=== PATIENT | male | born 1935 | race Caucasian/White ===

== ENCOUNTER 2016-03-30 14:58 | Inpatient (IN) | payer MEDICARE ==
[~2016-03-30] VITALS: Ht 180.3 cm; Wt 86.6 kg
--- NOTE | ~2016-03-30 | HEMODYNAMI ---
PATIENT:TORO AUGUST MEDICAL RECORD: [id number] : 33 [id number] ADMISSION DATE: 03/30/16 Generatedon:04/05/20169:38 Patient name: TORO AUGUST Patient #: [id number] SSN: : 1935 Date of study: 04/05/2016 Page: Of Hemodynamic Procedure Report Patient Data Patient Demographics Procedure consent was obtained First Name: TORO Gender: Male Last Name: MARIANGEL : 1935 Middle Initial: J Age: 80 year(s) Patient #: [id number] Race: Additional ID: [id number] Contact details Address: [address] [place] [address] State: [place] City: [place] Zip code: [address] Past Medical History Allergies: No known allergies Admission Admission Data Admission Date: 03/30/2016 Admission Time: 16:49 Admit Source: Other Insurance Payor: Private Room #: [id number] health insurance Height (in.): 72 BSA: 2.06 (m2) Height (cm.): 182.88 BMI: 25.09 (kg/m2) Weight (lbs.): 185 Weight (kg.): 83.91 Procedure Procedure Types Cath Procedure Diagnostic Procedure LHC LHC w/Coronaries w/Grafts Procedure Description Procedure Date Procedure Date: 04/05/2016 Procedure Start Time: 9:14 Procedure End Time: 9:36 Procedure Staff Name Function Luis Brennan MD Performing Physician Tika Medrano RT Scrub Rekha Moise RN Nurse Hema Jean RN Slate Roofer Travon Magana RT Monitor Procedure Data Cath Procedure Fluoroscopy Diagnostic fluoroscopy Total fluoroscopy Time: 6.1 time: 6.1 min min Diagnostic fluoroscopy Total fluoroscopy dose: 428 dose: 428 mGy mGy Contrast Material Contrast Material Type Amount (ml) Isovue 300 90 Entry Location Entry Primary Successful Side Size Upsize Upsize Entry Closure Succes sful Closure Location (Fr) 1 (Fr) 2 (Fr) Remarks Device Remarks Femoral Right 5 Fr Exoseal artery Estimated blood loss: 5 ml Diagnostic catheters Device Type Used For End Catheter Placement Cordis 5Fr JL 4.0 Procedure Catheter (MP) Cordis Infinity 5Fr AR Procedure MOD Catheter Cordis Infinity 5Fr AR 2 Procedure MOD catheter Cordis Infinity 5Fr IM Procedure catheter Cordis Infinity 5Fr Aortic Root Pigtail catheter Angiography Procedure Complications No complications Procedure Medications Medication Administration Route Dosage Oxygen NC 2 l/min Lidocaine 2% added to field 20 Heparin Flush Bag added to field 2 bags (1000units/500ml NS) 0.9% NaCl I.V. 100 ml/hr Versed I.V. 1 mg Fentanyl I.V. 50 mcg Versed I.V. 0.5 mg Fentanyl I.V. 25 mcg Versed I.V. 0.5 mg Fentanyl I.V. 25 mcg Hemodynamics Rest BSA: 2.06 (m2) O2 Consumption: Estimated: 237.95 (ml/min) O2 Consumption indexed : Estimated:115.51 (ml/min/m) Heart Rate: 74 (bpm) Snapshots Pre Cath Intra NCS Post Cath Vital Signs Time Heart Resp SPO2 etCO2 [id number] NIBP (mmHg) Rhythm Pain Sedation Rate (ipm) (%) (mmHg) (mmHg) Status Level (bpm) 8:58:06 79 17 96 0 0 154/79(114) NSR 0 (11) 10(A) , No pain 9:02:22 76 16 100 0 0 147/86(124) NSR 0 (11) 10(A) , No pain 9:06:38 73 16 98 0 0 130/76(102) NSR 0 (11) 10(A) , No pain 9:10:50 72 23 96 0 0 137/69(123) NSR 0 (11) 10(A) , No pain 9:15:02 74 14 98 0 0 141/75(106) NSR 0 (11) 9(A) , No pain 9:19:14 76 16 98 0 0 134/79(112) NSR 0 (11) 9(A) , No pain 9:23:28 73 14 99 0 0 136/65(110) NSR 0 (11) 9(A) , No pain 9:27:40 79 14 96 0 0 123/75(97) NSR 0 (11) 9(A) , No pain 9:31:45 82 17 97 0 0 128/79(96) NSR 0 (11) 10(A) , No pain 9:35:57 73 13 98 0 0 137/69(103) NSR 0 (11) 10(A) , No pain Medications Time Medication Route Dose Verified Delivered Reason Notes Effec tiveness by by 9:00:36 Oxygen NC 2 Luis Buffie used for l/min Mika Moise RN procedure 9:03:02 Lidocaine 2% added 20ml Luis Luis for local to vial Mika Brennan MD anesthetic field 9:03:07 Heparin Flush added 2 Luis Luis used for Bag to bags Mika Brennan MD procedure (1000units/500ml field NS) 9:03:17 0.9% NaCl I.V. 100 Luis Buffie Per ml/hr Mika Moise RN physician 9:09:28 Versed I.V. 1 mg Luis Buffie for Mika Moise RN sedation 9:09:34 Fentanyl I.V. 50 Luis Buffie for mcg Mika Moise RN sedation 9:15:18 Versed I.V. 0.5 Luis Buffie for mg Mika Moise RN sedation 9:15:23 Fentanyl I.V. 25 Luis Buffie for mcg Mika Moise RN sedation 9:23:13 Versed I.V. 0.5 Luis Buffie for mg Mika Moise RN sedation 9:23:17 Fentanyl I.V. 25 Luis Buffie for mcg Mika Moise RN sedation Procedure Log Time Note 8:45:26 Diagnostic Cath Status : Elective 8:45:53 Hema Jean RN sent for patient. Start room use. 8:45:54 Time tracking: Regular hours 8:45:57 Plan of Care:Hemodynamics will remain stable., Cardiac rhythm will remain stable., Comfort level will be maintained., Respiratory function will remain adequate., Patient/ family verbilizes understanding of procedure., Procedure tolerated without complication., Recovers from procedure without complications.. 8:53:57 Patient received from PCU to CCL 2 Alert and oriented. Tansferred to table in Supine position. 8:53:58 Warm blankets applied, and patsy hugger turned on for patient comfort. 8:53:58 Correct patient and procedure confirmed by team. 8:53:59 Signed procedure consent form obtained from patient. 8:54:00 ECG and BP/O2 sat monitors applied to patient. 8:54:01 Full Disclosure recording started 8:56:56 Vital chart was started 9:00:36 Oxygen 2 l/min NC was given by Rekha Moise RN; used for procedure; 9:00:38 Baseline sample Acquired. 9:00:43 Rhythm: sinus rhythm 9:01:11 H&P Date Dictated: 03/30/2016 Within 30 days and on chart.. 9:01:12 Pre-procedure instructions explained to patient. 9:01:12 Pre-op teaching completed and patient verbalized understanding. 9:01:15 Family in patients room. 9:01:16 Patient NPO since Midnight. 9:01:24 Patient allergic to No known allergies 9:01:27 Is the patient allergic to Iodine/contrast media? No. 9:01:29 Is patient on blood thinner?No 9:01:30 Patient diabetic? No. 9:01:36 Previous problem with sedation/anesthesia? No ? 9:01:37 Snore? No 9:01:38 Sleep apnea? No 9:01:39 Deviated septum? No 9:01:40 Opens mouth fully? Yes 9:01:41 Sticks out tongue? Yes 9:01:44 Airway obstruction? Yes COPD 9:01:47 Dentures? No ? 9:01:52 Pre procedure: right dorsailis pedis pulse 1+ Palpable, but thready & weak; easily obliterated 9:02:02 Patient pain scale 0/10 ?. 9:02:05 IV patent on arrival in left hand with 0.9% NaCl at O. 9:02:55 Lab Result : Hemoglobin 11.4 g/dl 9:02:55 Lab Result : Creatinine 2.6 mg/dl 9:02:58 Lab results completed and on chart. 9:03:01 Right groin area was prepped with chlora-prep and draped in sterile fashion 9:03:02 Lidocaine 2% 20ml vial added to field was given by Luis Brennan MD; for local anesthetic; 9:03:03 Alarms reviewed by R. N. 9:03:03 Sharps counted by scrub and verified by R.N. 9:03:05 Use device set Femoral Dx 9:03:07 Heparin Flush Bag (1000units/500ml NS) 2 bags added to field was given by Luis Brennan MD; used for procedure; 9:03:07 Tegaderm 4 x 4 opened to sterile field. 9:03:08 Acist Manifold opened to sterile field. 9:03:09 Acist Hand Control opened to sterile field. 9:03:10 Acist Syringe opened to sterile field. 9:03:10 Bag Decanter opened to sterile field. 9:03:10 Cardinal Cath Pack opened to sterile field. 9:03:11 Terumo 5Fr Lothian Sheath opened to sterile field. 9:03:11 St Gregg 260cm J .035 wire opened to sterile field. 9:03:17 0.9% NaCl 100 ml/hr I.V. was given by Rekha Moise RN; Per physician; ::18 --------ALL STOP TIME OUT------ 9::18 Final Timeout: patient, procedure, and site verified with staff and physician. All members of the team are in agreement. 9:03:20 Right groin site verified by team. 9:03:22 Physical assessment completed. ASA score P 3 - A patient with severe systemic disease as per Luis Brennan MD. 9:03:25 Sedation plan: IV Moderate Sedation Versed, Fentanyl 9:05:04 Admit Source: Other 9:05:12 Patient Height : 72 cm 9:05:21 Patient Weight : 185 kg 9:05:22 Insurance Payor : Private health insurance 9:05:44 ACC Patient presents with Unstable Angina CCS Anginal Class 3--Marked limitation of physical activity, angina occurs with ordinary activity.. 9:05:47 ACCPatient has been prescribed/administered the following anti-anginal medication within the last 2 weeks: None 9:08:37 Zero performed for pressure channel P1 9:08:40 Zero performed for pressure channel P1 9:08:53 Zero performed for pressure channel P1 9::28 Versed 1 mg I.V. was given by Rekha Moise RN; for sedation; 9:09:34 Fentanyl 50 mcg I.V. was given by Rekha Moise RN; for sedation; 9:09:39 Procedure type changed to Cath procedure, Diagnostic procedure, LHC, LHC w/Coronaries w/Grafts 9:13:53 Procedure started. 9:14:07 Local anesthetic to right femoral artery with Lidocaine 2% by Luis Brennan MD.INITIAL ACCESS ONLY 9:15:05 A 5 Fr sheath was inserted into the Right Femoral artery 9:15:18 Versed 0.5 mg I.V. was given by Rekha Moise RN; for sedation; 9:15:23 Fentanyl 25 mcg I.V. was given by Rekha Moise RN; for sedation; 9:16:52 A Cordis 5Fr JL 4.0 Catheter () was advanced over the wire and used for Procedure. 9:17:00 LCA angiography performed. 9:17:09 Catheter removed. 9:18:22 A Cordis Infinity 5Fr AR MOD Catheter was advanced over the wire and used for Procedure. 9:19:04 Catheter removed. 9:19:17 A Cordis Infinity 5Fr AR 2 MOD catheter was advanced over the wire and used for Procedure. 9:21:16 SVG TO DIAG AND OM 9:22:14 SVG to RCA angiography performed. 9:23:08 Catheter removed. 9:23:13 Versed 0.5 mg I.V. was given by Rekha Moise RN; for sedation; 9:23:17 Fentanyl 25 mcg I.V. was given by Rekha Moise RN; for sedation; 9:23:40 A Cordis Infinity 5Fr IM catheter was advanced over the wire and used for Procedure. 9:27:05 SOLIS to LAD angiography performed. 9:28:21 Catheter removed. 9:29:20 A Cordis Infinity 5Fr Pigtail catheter was advanced over the wire and used for Aortic Root Angiography. 9:29:51 Aortic Root visualized 9:30:15 Catheter removed. 9:31:16 Cordis 5Fr Exoseal opened to sterile field. 9:31:33 Sheath removed intact; hemostasis achieved with Exoseal to the Right Femoral artery. 9:31:39 Procedure ended.(Physican Out) 9:33:58 Fluoroscopy time 06.10 minutes. 9:34:01 Fluoroscopy dose: 428 mGy 9:34:01 Flurop Dose total: 428 9:34:16 Contrast amount:Isovue 300 90ml. 9:34:17 Sharps counted by scrub and verified by R.N. 9:34:22 Insertion/operative site no bleeding no hematoma. 9:34:24 Post-op/insertion site Right Femoral artery dressed using a 4 x 4 and Tegaderm. 9:34:28 Post right femoral artery:stable, soft, clean and dry 9:34:30 Post Procedure Pulses reassessed and unchanged 9:34:34 Post-procedure physical assessment completed. ASA score P 3 - A patient with severe systemic disease as per Luis Brennan MD. 9:34:37 Post procedure rhythm: unchanged. 9:34:45 Estimated blood loss: 5 ml 9:34:46 Post procedure instruction explained to patient.Patient verbalizes understanding. 9:34:47 Patient needs reinforcement of post procedure teaching. 9:36:26 Procedure and supply charges have been captured, reviewed, submitted and are correct. 9:36:30 Procedure Complication : No complications 9:36:33 Vital chart was stopped 9:36:46 See physician's report for complete and final results. 9:36:49 Report given to PCU. 9:36:52 Patient transfered to PCU with Stretcher. 9:36:54 Procedure ended. 9:36:54 Full Disclosure recording stopped 9:37:09 End room use (Document Last) Device Usage Item Manufacture Quantity Catalog Hospital Part Current Minimal Lot # / Name Number Charge Number Stock Stock Ser ial# Code Tegaderm 1 [id number] 997972 [id number] 5 4 x 4 Acist Acist 1 37918 329706 625993 303275 5 Manifold Medical Systems Inc Acist Acist 1 28551 475284 521716 978481 5 Hand Medical Control Systems Inc Acist Acist 1 07538 567771 931044 454524 20 Syringe Medical Systems Inc Bag Microtek 1 2001S 878144 37939 820572 5 Decanter Medical Inc. Cardinal Cardinal 1 [id number] 961938 56634 151127 5 Cath Health Pack Terumo Terumo 1 [id number] 061268 569991 114353 [address] Gregg 1 008366 517198 205483 787333 30 260cm J .035 wire Cordis Cardinal 1 [id number] 5 5Fr Mobile Ads Health 4.0 Catheter (MP) Cordis Cardinal 1 [id number] 636890 341948 940883 15 [employer] 5Fr AR MOD Catheter Cordis Cardinal 1 [id number] 649358 680812 422311 20 Infinity Health 5Fr AR 2 MOD catheter Cordis Cardinal 1 [id number] 848717 695318 513524 5 Infinity Health 5Fr IM catheter Cordis Cardinal 1 [id number] 376138 038040 271645 5 Infinity Health 5Fr Pigtail catheter Cordis Cardinal 1 EX500 192692 898608 097437 10 5Fr Health Exoseal Signature Audit [place] Stage Time Signature Unsigned Intra-Procedure 04/05/2016 Travon Magana 9:38:05 AM RT(R) Signatures Monitor : Travon Magana RT Signature : Date : Time : [place] [address] [place] [address]
[~2016-03-30 14:58] MED LIST: COMBIVENT RESPIM4 GM; COMBIVENT RESPIM4 GM INH; DOXYCYCLINE HY100 M2 PO; ECOTRIN325 MG PO; HYDROCODON-ACE1 EAC7 PO; IPRAT-ALBUT 0.5-3 ML UPD; OMNICEF300 MG PO; ORAPRED ODT10 MG/TAB PO; PLAVIX75 MG PO; SYMBICORT 16010.2 GM INH; VITAMIN B-121000 MC3 PO
[2016-03-30 15:45] LABS: BASOPHILS 1.1 % (0.0-2.0); EOSINOPHILS 8.2 % (0-7); HEMOGLOBIN 11.9 g/dL (13.5-17.5); IMMATURE GRANULOCYTES 0.4 % (0-5); LYMPHOCYTES 21.3 % (15-50); MCH 32.2 pg (26.0-34.0); MCHC 33.1 g/dL (31.0-37.0); MCV 97.6 fL (80.0-100.0); MONOCYTES 11.6 % (2-11); NEUTROPHILS 57.4 % (40-80); RBC 3.69 10x6/uL (4.20-6.10); RDW 14.7 % (11.5-14.5); WBC 7.5 10x3/uL (4.8-10.8)
[2016-03-30 15:53] LABS: PLATELET COUNT 74 10x3/uL (130-400)
[2016-03-30 16:02] LABS: ALBUMIN 3.6 g/dL (3.4-5.0); ALKALINE PHOSPHATASE 83 U/L (46-116); ALT (SGPT) 20 U/L (10-68); BILIRUBIN - TOTAL 0.46 mg/dL (0.2-1.3); CALC OSMOLALITY 295 mosm/kg (275-300); CALCIUM 8.5 mg/dL (8.5-10.1); CARBON DIOXIDE 23.3 mmol/L (21.0-32.0); CHLORIDE - SERUM 108 mmol/L (98-107); CREATININE - SERUM 2.9 mg/dL (0.6-1.3); GLUCOSE 92 mg/dL (74-106); POTASSIUM - SERUM 5.1 mmol/L (3.5-5.1); PROTEIN - SERUM 6.9 g/dL (6.4-8.2); SODIUM 143 mmol/L (136-145); UREA NITROGEN 44 mg/dL (7-18); eGFR NON AFRICAN AMERICAN 22 mL/min (90-120)
[2016-03-30 16:16] LABS: PLATELET ESTIMATE DECREASED
[2016-03-30 16:18] LABS: CKMB 1.9 U/L (0.0-3.6); CREATINE KINASE 75 UL (21-232); PRO BNP 1236 pg/mL (0-450)
[2016-03-30 16:21] LABS: TROPONIN-I 0.096 ng/mL (0.000-0.060)
[2016-03-30 17:28] LABS: APPEARANCE CLEAR (CLEAR); BILIRUBIN NEGATIVE (NEGATIVE); COLOR YELLOW (YELLOW); GLUCOSE NEGATIVE (NEGATIVE); KETONE NEGATIVE (NEGATIVE); LEUKOCYTE ESTERASE NEGATIVE (NEGATIVE); NITRITE NEGATIVE (NEGATIVE); PROTEIN 2+ mg/dL (NEGATIVE); UROBILINOGEN NORMAL (NORMAL)
[2016-03-30 17:29] LABS: BACTERIA FEW /hpf (NONE SEEN); WHITE CELLS - URINE OCC /hpf (0-5)
[2016-03-30] MEDS ORDERED: OFEV PO (21:22)
[2016-03-30 22:56] VITALS: BP 154/94; BMI 25.8
[2016-03-31 00:45] VITALS: BP 141/75
--- NOTE | 2016-03-31 02:05 | NUR ---
PT RESTING WELL WITHOUT C/O OR DISTRESS NOTED. NO NEEDS VOICED. CALL LIGHT WITHIN REACH. WILL CONT TO MONITOR.
[2016-03-31 04:20] VITALS: BP 157/58
[2016-03-31 08:40] VITALS: BP 179/80
--- NOTE | 2016-03-31 09:59 | NUR ---
ASSESSMENT COMPLETED. TELEMERTY SHOWS SR. IV TO LEFT FOREARM AT 75 CC/HR. UP AB KYRA. DENIES ANY NEEDS. CALL LIGHT IN REACH WITH SR UP
[2016-03-31 12:03] VITALS: BP 131/60
--- NOTE | 2016-03-31 13:21 | HP ---
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 He had been going up and down the stairs and felt very short of breath, felt like his heart was racing, sat down and felt like he is going to pass out. He was evaluated there and shipped to the urgent care clinic for further evaluation and transferred to the Emergency Room via ambulance. PAST MEDICAL HISTORY: Significant for significant cardiovascular disease, has had quadruple bypass, valve replacement and abdominal aortic aneurysm repair. His retail and promotions coordinator is Dr. Woodward and he also has a history of COPD and sees Dr. Cabezas. Also, has had recent hernia repair and prior remote hernia repair. Former smoker. CURRENT MEDICATIONS: Inhalers from Dr. Cabezas. Recent medication: Not clear on the name, he does not have with him, but for pulmonary hypertension. Plavix and B12. ALLERGIES: No known drug allergies. REVIEW OF SYSTEMS: GENERAL: No acute change in weight or appetite. HEENT: No cephalgia, visual changes, tinnitus, epistaxis or dysphagia. CARDIOVASCULAR: Significant for the above. PULMONARY: Denies hemoptysis, denies night sweats. Does admit to shortness of breath. GASTROINTESTINAL: Denies hematemesis, hematochezia or melena. GENITOURINARY: Denies dysuria. Denies any change in frequency. MUSCULOSKELETAL: No acute changes. ENDOCRINE: Denies polyuria, polydipsia, or polyphagia. PHYSICAL EXAMINATION: VITAL SIGNS: Temperature 98.2, blood pressure is 156/89, heart rate 84, respirations 24, and O2 sats 84% room air. GENERAL: Alert, oriented, mild distress secondary to above symptoms somewhat improved with supplemental O2. HEENT: Head is normocephalic and atraumatic. Eyes: Pupils equally round and reactive to light and accommodation. Extraocular muscles intact. Conjunctiva are not injected. Ears: Canals patent, TMs are intact. Nose: Nares patent without drainage. Throat: No erythema, no exudates. NECK: Supple. No lymphadenopathy. HEART: Regular rate and rhythm. No S3 or S4. No rub. LUNGS: Clear to auscultation bilaterally. Breathing is nonlabored. ABDOMEN: Soft and nontender. Bowel sounds all 4 quadrants. EXTREMITIES: Present times 4, no edema. NEUROLOGIC: No focal deficits. DIAGNOSTIC DATA: EKG shows normal sinus rhythm, left axis deviation, LVH, QRS widening, ventricular rate 69. LABORATORY DATA: INR is 1.14, CK-MB 1.9, troponin 0.096. BNP 1236, creatinine HISTORY AND PHYSICAL [id number] TORO AUGUST elevated. ASSESSMENT AND PLAN: Acute congestive heart failure, likely non-ST elevation myocardial infarction, chronic kidney disease. The patient is admitted, cycle enzymes. Cardiology consulted, nephrology consulted. Resume home medications. Supportive care with supplemental O2, DuoNebs. TRANSINT:[id number] Voice Confirmation ID: [id number] DOCUMENT ID: [id number] FLORECITA CROWELL DO at 1321 CC: [id number] DICTATION DATE: 03/30/161920 SENIOR VISUAL DESIGNER: 03/30/162044 ADM IN [place] [id number] [place] [address]
--- NOTE | 2016-03-31 14:25 | NUR ---
LYING QUIETLY WITH EYES CLOSED. NO DISTRESS NOTED. WILL MONITOR
--- NOTE | 2016-03-31 14:41 | NUR ---
WALKING IN HALLWAY WITH . DENIES ANY NEEDS. TELEMERTY SHOWS SR
[2016-03-31 14:47] VITALS: BP 131/65
--- NOTE | 2016-03-31 15:01 | NUR ---
PT SITTING UP IN BED DENIES NEEDS
--- NOTE | 2016-03-31 18:13 | NUR ---
UP IN BEDSIDE CHAIR.DENIES ANY NEEDS. TELEMERTY SHOWS SR. WILL MONITOR
[2016-03-31 19:32] LABS: CREATININE - URINE 55.5 mg/dL (30-125); PROTEIN - URINE 132.6 mg/dL (0.0-11.9)
[2016-03-31 20:10] VITALS: BP 165/84
[2016-04-01 00:35] VITALS: BP 117/66
--- NOTE | 2016-04-01 02:00 | NUR ---
PT RESTING WELL WITHOUT C/O OR DISTRESS NOTED. NO NEEDS VOICED. CALL LIGHT WITHIN REACH. WILL CONT TO MONITOR.
[2016-04-01 04:28] VITALS: BP 105/60
[2016-04-01 06:14] LABS: BASOPHILS 0.5 % (0.0-2.0); EOSINOPHILS 5.6 % (0-7); HEMOGLOBIN 10.9 g/dL (13.5-17.5); IMMATURE GRANULOCYTES 0.2 % (0-5); LYMPHOCYTES 27.6 % (15-50); MCH 31.9 pg (26.0-34.0); MCV 96.5 fL (80.0-100.0); MONOCYTES 9.3 % (2-11); NEUTROPHILS 56.8 % (40-80); PLATELET COUNT 79 10x3/uL (130-400); RBC 3.42 10x6/uL (4.20-6.10); RDW 14.9 % (11.5-14.5); WBC 6.6 10x3/uL (4.8-10.8)
[2016-04-01 06:18] LABS: ANION GAP 14.2 mmol/L (8-16); CARBON DIOXIDE 23.6 mmol/L (21.0-32.0); CREATININE - SERUM 2.8 mg/dL (0.6-1.3); POTASSIUM - SERUM 4.8 mmol/L (3.5-5.1)
[2016-04-01 06:24] LABS: COMPLEMENT C4 17.7 mg/dL (17.4-52.2)
--- NOTE | 2016-04-01 07:25 | NUR ---
ASSESSMENT COMPLETED. DENIES ANY NEEDS. TELEMERTY SHOWS SR 68. IV TO LEFT AC WITH D5NS AT 75. CALL LIGHT IN REACH WITH SR UP. WILL MONITOR
[2016-04-01 08:07] VITALS: BP 130/43
--- NOTE | 2016-04-01 09:20 | NUR ---
IV PATENT. CALL LIGHT IN REACH. WILL CONT. PLAN OF CARE.
--- NOTE | 2016-04-01 10:27 | NUR ---
AMBULATING IN HALLWAY. GAIT SLOW AND STEADY. DENIES ANY NEEDS. MONITOR SHOWS SR.
[2016-04-01 12:19] VITALS: BP 148/80
--- NOTE | 2016-04-01 12:20 | NUR ---
UP IN BEDSIDE CHAIR FOR DIET. DENIES ANY NEEDS. FAMILY AT BEDSIDE. TELEMETRY SHOWS SR. WILL MONITOR
[2016-04-01 16:33] VITALS: BP 121/43
[2016-04-01 20:00] VITALS: BP 153/85
--- NOTE | 2016-04-01 21:54 | NUR ---
INITIAL ROUNDS COMPLETED AT 1915 HRS. PT DENIED ANUY DISCOMFORT. ASSESSMENT COMPLETED AT 1999 HRS. VSS. SR WITH BBB PER CM HR 86. IV TO LFA WITH D5NS AT 100CC/HR. IV PATENT. LUNGS DIMINISHED IN BASES BILAT. SYSTOLIC MURMUR NOTED. PT UP AD KYRA. PT CURRENTLY WATCHING TV; DENIES ANY DISCOMFORT. SR UP X2, CALL LIGHT WITHIN REACH.
--- NOTE | 2016-04-02 00:16 | NUR ---
PT RESTING WITH EYES CLOSED. RESP EVEN AND REGULAR SR UP X2, CALL LIGHT WITHIN REACH.
[2016-04-02 00:33] VITALS: BP 148/77
--- NOTE | 2016-04-02 03:05 | NUR ---
PT RESTING WITH EYES CLOSED. RESP EVEN AND REGULAR. SR UP X2, CALL LIGHT WITHIN REACH.
--- NOTE | 2016-04-02 04:49 | NUR ---
PT RESTING WITH EYES CLOSED. RESP EVEN AND REGULAR. SR UP X2, CALL LIGHT WITHIN REACH.
[2016-04-02 05:19] VITALS: BP 153/83
[2016-04-02 06:04] LABS: BASOPHILS 0.8 % (0.0-2.0); HEMATOCRIT 30.8 % (42.0-54.0); HEMOGLOBIN 10.5 g/dL (13.5-17.5); IMMATURE GRANULOCYTES 0.3 % (0-5); LYMPHOCYTES 27.4 % (15-50); MCH 32.7 pg (26.0-34.0); MCHC 34.1 g/dL (31.0-37.0); MONOCYTES 8.5 % (2-11); PLATELET COUNT 70 10x3/uL (130-400); RBC 3.21 10x6/uL (4.20-6.10); RDW 14.9 % (11.5-14.5)
[2016-04-02 06:39] LABS: CALC OSMOLALITY 302 mosm/kg (275-300); CALCIUM 8.1 mg/dL (8.5-10.1); CARBON DIOXIDE 21.5 mmol/L (21.0-32.0); CHLORIDE - SERUM 112 mmol/L (98-107); CKMB 1.4 U/L (0.0-3.6); CREATININE - SERUM 2.6 mg/dL (0.6-1.3); GLUCOSE 99 mg/dL (74-106); POTASSIUM - SERUM 4.5 mmol/L (3.5-5.1); SODIUM 145 mmol/L (136-145); UREA NITROGEN 51 mg/dL (7-18); eGFR NON AFRICAN AMERICAN 25 mL/min (90-120)
--- NOTE | 2016-04-02 06:54 | NUR ---
VSS THROUGHOUT NIGHT. SR PER CM. PT DENIED ANY DISCOMFORT. NEEDS MET; WILL CONTINUE TO MONITOR.
--- NOTE | 2016-04-02 07:25 | NUR ---
ASSESSMENT DONE. DENIES NEEDS.
--- NOTE | 2016-04-02 09:54 | NUR ---
Rests in bed with eyes closed. IV patent. Call light in reach. Will monitor needs.
--- NOTE | 2016-04-02 17:02 | NUR ---
WITHOUT CHANGES OR DISTRESS NOTED AT THIS TIME. ESTEFANY NEEDS.
[2016-04-02 21:43] VITALS: BP 145/58
[2016-04-03 01:28] VITALS: BP 175/73
[2016-04-03 05:20] LABS: EOSINOPHILS 12.2 % (0-7); HEMATOCRIT 31.8 % (42.0-54.0); HEMOGLOBIN 10.8 g/dL (13.5-17.5); IMMATURE GRANULOCYTES 0.3 % (0-5); LYMPHOCYTES 24.9 % (15-50); MCH 32.2 pg (26.0-34.0); MCV 94.9 fL (80.0-100.0); MEAN PLATELET VOLUME 9.9 fL (7.4-10.4); MONOCYTES 10.3 % (2-11); NEUTROPHILS 51.3 % (40-80); PLATELET COUNT 65 10x3/uL (130-400); RBC 3.35 10x6/uL (4.20-6.10); WBC 6.3 10x3/uL (4.8-10.8)
[2016-04-03 05:37] LABS: APTT 32.1 SECONDS (22.8-39.4); INR 1.21 (0.85-1.17); PROTIME 15.2 SECONDS (11.6-15.0)
[2016-04-03 05:45] VITALS: BP 155/89
[2016-04-03 05:50] LABS: CALCIUM 8.2 mg/dL (8.5-10.1); CARBON DIOXIDE 20.5 mmol/L (21.0-32.0); CREATININE - SERUM 2.5 mg/dL (0.6-1.3); POTASSIUM - SERUM 4.5 mmol/L (3.5-5.1)
[2016-04-03 08:00] VITALS: BP 141/82
--- NOTE | 2016-04-03 08:05 | NUR ---
ASSESSMENT DONE. DENIES NEEDS.
--- NOTE | 2016-04-03 09:41 | NUR ---
UP IN CHAIR WITH CALL LIGHT IN REACH. WILL CONT. PLAN OF CARE.
[2016-04-03 10:16] LABS: ANA REFLEX - DIRECT Negative (Negative)
[2016-04-03 11:16] LABS: HEPATITIS C ANTIBODY <0.1 (0.0-0.9)
[2016-04-03 12:00] VITALS: BP 137/67
[2016-04-03 12:59] VITALS: Ht 180.3 cm; Wt 86.6 kg
[2016-04-03 15:18] LABS: SPE - A/G RATIO 1.1 (0.7-1.7); SPE - ALBUMIN 3.1 g/dL (2.9-4.4); SPE - ALPHA-1 GLOBULIN 0.2 g/dL (0.0-0.4); SPE - ALPHA-2 GLOBULIN 0.7 g/dL (0.4-1.0); SPE - BETA GLOBULIN 0.9 g/dL (0.7-1.3); SPE - GAMMA GLOBULIN 0.9 g/dL (0.4-1.8); SPE - M-SPIKE Not Observed g/dL (Not Observed); SPE - TOTAL PROTEIN 5.8 g/dL (6.0-8.5)
[2016-04-03 16:00] VITALS: BP 125/73
--- NOTE | 2016-04-03 17:10 | NUR ---
WITHOUT CHANGES OR DISTRESS NOTED AT THIS TIME. DENIES NEEDS.
[2016-04-03 21:06] VITALS: BP 139/86
--- NOTE | 2016-04-03 21:23 | NUR ---
PT ASSESSMENT COMPLETED NO DISTRESS OBSERVED PT LAYING IN BED ON ROOM AIR RESPERATIONS EVEN AND UNLABORED, PT STATED " I BREATH OKAY UNLESS I WALK A CERTIAN DISTANCE THEN I GET SHORT OF BREATH" ADVISED PT ABOUT WEARING O2 WHEN WALKING AND PT STATED " I DONT WANT TO DO THAT BECAUSE THEN I WILL NEVER GET OFF OF IT" TEACHING FOR COPD AND CHF DONE AND PT VERBALIZED UNDERSTANDING. SRX2 BED LOW AND LOCKED CALL LIGHT IN REACH WILL MONITOR
[2016-04-04 00:43] VITALS: BP 144/81
[2016-04-04 05:26] VITALS: BP 156/51
--- NOTE | 2016-04-04 07:11 | NUR ---
ASSESSMENT DONE. DENIES NEEDS.
[2016-04-04 08:24] VITALS: BP 149/76
--- NOTE | 2016-04-04 09:55 | NUR ---
RESTS WITH EYES CLOSED. CALL LIGHT IN REACH. WILL MONITOR NEEDS.
[2016-04-04 10:17] LABS: ANTI-GLOMERULAR BASMENT MEMBRN 5 units (0-20)
[2016-04-04 13:17] VITALS: BP 149/80
[2016-04-04 16:27] VITALS: BP 156/87
[2016-04-04 18:54] LABS: BASOPHILS 0.8 % (0.0-2.0); EOSINOPHILS 10.5 % (0-7); HEMATOCRIT 34.1 % (42.0-54.0); HEMOGLOBIN 11.4 g/dL (13.5-17.5); IMMATURE GRANULOCYTES 0.3 % (0-5); LYMPHOCYTES 22.1 % (15-50); MCH 32.5 pg (26.0-34.0); MCHC 33.4 g/dL (31.0-37.0); MEAN PLATELET VOLUME 10.1 fL (7.4-10.4); MONOCYTES 7.6 % (2-11); NEUTROPHILS 58.7 % (40-80); PLATELET COUNT 67 10x3/uL (130-400); RBC 3.51 10x6/uL (4.20-6.10); RDW 15.1 % (11.5-14.5); WBC 7.3 10x3/uL (4.8-10.8)
[2016-04-04 18:55] LABS: MCV 97.2 fL (80.0-100.0)
[2016-04-04 19:09] LABS: ANION GAP 15.8 mmol/L (8-16); CALCIUM 8.5 mg/dL (8.5-10.1); CARBON DIOXIDE 24.5 mmol/L (21.0-32.0); CREATININE - SERUM 2.6 mg/dL (0.6-1.3)
[2016-04-04 19:20] LABS: POTASSIUM - SERUM 5.3 mmol/L (3.5-5.1)
[2016-04-04 20:02] VITALS: BP 140/70
[2016-04-05] VITALS (10 sets, daily range): BP systolic 116–146; BP diastolic 65–84
--- NOTE | 2016-04-05 04:36 | NUR ---
PT LAYING IN BED NO DISTRESS OBSERVED PT NOTIFIED OF NPO STATUS AFTER MIDNIGHT FOR CATH IN AM AND PT VERBALIZED UNDERSTANDING CALL LIGHT IN REACH SRX2 BED LOW AND LOCKED WILL MONITOR
[2016-04-05 06:06] LABS: BASOPHILS 0.9 % (0.0-2.0); EOSINOPHILS 9.6 % (0-7); HEMATOCRIT 32.2 % (42.0-54.0); HEMOGLOBIN 10.8 g/dL (13.5-17.5); IMMATURE GRANULOCYTES 0.4 % (0-5); LYMPHOCYTES 23.6 % (15-50); MCHC 33.5 g/dL (31.0-37.0); MCV 95.5 fL (80.0-100.0); MEAN PLATELET VOLUME 11.2 fL (7.4-10.4); NEUTROPHILS 55.5 % (40-80); PLATELET COUNT 78 10x3/uL (130-400); RBC 3.37 10x6/uL (4.20-6.10); RDW 14.9 % (11.5-14.5)
[2016-04-05 06:29] LABS: ANION GAP 15.4 mmol/L (8-16); CALCIUM 8.1 mg/dL (8.5-10.1); CARBON DIOXIDE 24.7 mmol/L (21.0-32.0); CREATININE - SERUM 2.4 mg/dL (0.6-1.3); POTASSIUM - SERUM 5.1 mmol/L (3.5-5.1)
--- NOTE | 2016-04-05 07:30 | NUR ---
RECEIVED PT IN BED WITH EYES CLOSED RESP UNLABORED NAD NOTED
--- NOTE | 2016-04-05 09:42 | NUR ---
Patient Name: TORO AUGUST Admission Status: ER Accout number: [id number] Admission Date: 03-30-2016 : 1935 Admission Diagnosis:DYSPNEA, UNSPECIFIED Attending: HUMBLE Current LOS: 6 Anticipated DC Date: Planned Disposition: Home Primary Insurance: [employer] [facility] Discharge Planning Comments: CM met with patient's spouse "Columba August" at bedside. The patient has currently gone for procedure. At this time, the patient's spouse answered all questions. Spouse states the patient resides at home with her and is independent of all ADL's. They reside in a single story home with 3 steps leading into the front door. She states the last hospitalization was a hernia repair 5-6 month's ago here at [facility]. She states the home environment is safe to return to and will notify CM should the patient need DME/HH. CM will follow up and revisit when patient returns to room. CM will also follow and assist as needed with discharge planning/needs. Call Center Team Leader: Ania Roberts RN/CM No. Question Answer Score * How many steps to enter\\exit or inside your home? 3 0 * PCP Dr. Gastelum 0 * Pharmacy [facility] ([facility]) [phone] 0 * Preadmission Environment Home with Family 0 * ADLs Independent 0 * Equipment None 0 * List name and contact numbers for known caregivers / representatives who currently or will assist patient after discharge: Columba August (spouse) [phone] 0 * Community resources currently utilized None 0 * Additional services required to return to the preadmission environment? No 0 * Can the patient safely return to the preadmission environment? Yes 0 * Has this patient been hospitalized within the prior 30 days at any hospital? No 0 Grand Total: 0
--- NOTE | 2016-04-05 09:53 | NUR ---
RECEIVED PT BACK TO ROOM VIA BED IN STABLE CONDITION VSS
[2016-04-05 15:25] LABS: ANCA - ANTIMYELOPEROXIDASE <9.0 U/mL (0.0-9.0); ANCA - ANTIPROTEINASE 3 <3.5 U/mL (0.0-3.5); ANCA - ATYPICAL 1:20 titer (Neg:<1:20); ANCA - CYTOPLASMIC <1:20 titer (Neg:<1:20); ANCA - PERINUCLEAR <1:20 titer (Neg:<1:20)
--- NOTE | 2016-04-05 20:10 | NUR ---
RESUMED CARE OF PT, LYING IN BED RESPIRATIONS EVEN AND UNLABORED ON 2LPM VIA NC. 78 SR ON TELEMETRY. LEFT FOREARM INFUSING NA BICARB @ 75. RIGHT GROIN C/D/I WITH PEDAL PULSE PALPABLE. NO NEEDS VOICED AT THIS TIME. WILL CONTINUE TO MONITOR. SEE NURSE ASSESSMENT. CALL LIGHT IN REACH.
--- NOTE | 2016-04-05 21:15 | NUR ---
UP AMBULATING HALLWAYS, EXPERIENCED SHORTNESS OF BREATH. STATES THIS HAPPENS AT HOME WELL. RECOVERED AFTER APPROX 3MIN. BACK TO ROOM.
[2016-04-06 00:36] VITALS: BP 129/65
--- NOTE | 2016-04-06 04:02 | NUR ---
CERTIFIED NURSE MIDWIFE AT BEDSIDE TO OBTAIN VITALS, CALL LIGHT IN REACH. WILL CONTINUE TO MONITOR.
[2016-04-06 04:57] VITALS: BP 129/69
[2016-04-06 05:01] LABS: BASOPHILS 1.2 % (0.0-2.0); EOSINOPHILS 12.5 % (0-7); HEMATOCRIT 32.3 % (42.0-54.0); HEMOGLOBIN 10.7 g/dL (13.5-17.5); IMMATURE GRANULOCYTES 0.3 % (0-5); LYMPHOCYTES 27.5 % (15-50); MCH 31.9 pg (26.0-34.0); MCHC 33.1 g/dL (31.0-37.0); MCV 96.4 fL (80.0-100.0); MEAN PLATELET VOLUME 10.9 fL (7.4-10.4); MONOCYTES 8.8 % (2-11); NEUTROPHILS 49.7 % (40-80); PLATELET COUNT 73 10x3/uL (130-400); RBC 3.35 10x6/uL (4.20-6.10); RDW 14.8 % (11.5-14.5); WBC 6.8 10x3/uL (4.8-10.8)
[2016-04-06 05:37] LABS: ANION GAP 13.4 mmol/L (8-16); CARBON DIOXIDE 26.6 mmol/L (21.0-32.0); CREATININE - SERUM 2.5 mg/dL (0.6-1.3)
--- NOTE | 2016-04-06 06:42 | NUR ---
NO CHANGES FROM PREVIOUS ASSESSMENT, CALL LIGHT IN REACH.
[2016-04-06 08:04] VITALS: BP 113/81
--- NOTE | 2016-04-06 08:15 | NUR ---
EATING BREAKFAST NAD NOTED DENIES ANY NEEDS OR DISCOMFORT
[2016-04-06 11:48] VITALS: BP 138/74
--- NOTE | 2016-04-06 14:53 | NUR ---
REVIEWED DISCHARGE INSTRUCTIONS WITH PT AND BOTH STATE UDERSTANDING COPY GIVEN DCD SALINE LOCK WITH 20 GA IV CATH INTACT SITE FREE OF REDNESS OR EDEMA PT DISCHARGED HOME LEFT UNIT VIA W/C IN STABLE CONDITION WITH ALL PERSONAL BELONGINGS
--- NOTE | 2016-04-09 15:45 | EC ---
PATIENT:TORO AUGUST DATE OF SERVICE: 03/30/16 SEX: M MEDICAL RECORD: [id number] DATE OF : 34 LOCATION:D. D.211 AGE OF PATIENT: 80 ADMISSION DATE: 03/30/16 REFERRING PHYSICIAN: INTERPRETING PHYSICIAN: PATT BRENNAN M.D. ECHOCARDIOGRAM REPORT ECHO CHARGES 4 ECHO COMPLETE CLINICAL DIAGNOSIS: CHF ECHOCARDIOGRAPHIC MEASUREMENTS (adult normal given) AC root (d.<3.7cm) 3.6 LV Septum d (<1.2 cm> 1.5 Valve Excursion 1.5 LV Septum (systole) 2.2 Left Atria (s.<4.0cm> 4.6 LVPW d(<1.2cm) 1.3 RV (d.<2.3cm) 2.8 LVPW (sytole) 1.9 LV diastole(<5.6CM) 5.5 MV E-F(>70mm/sec) LV systole 3.3 LVOT Diameter 2.1 MV exc.(>10mm) Est.ejection fraction (50-75%) Pericardial Effusion N DOPPLER: LVIT A 113.0 E 71.0 LA RVSP 51.0 LVOT 100 AOP1/2T Asc. Ao 223 RVOT 74.0 RA PA 104 AV Gradient Peak 20.0 AV Mean 8.4 AV Area 1.9 MV Gradient Peak 5.2 MV Mean 2.1 MV Area COMMENTS: Patented Hogshead Assembler: Soraya MORENOOE Driver/Sales Workers:Rashaad Brennan TAPE# PACS DATE OF SERVICE: 04/01/2016 REFERRING PHYSICIAN: Dr. Gastelum. INDICATION: CHF. DESCRIPTION: Left ventricle demonstrates left ventricular hypertrophy. There is mild to moderate LV dysfunction noted. His ejection fraction is in the order of 40%. Mitral valve is structurally normal. There is mild regurgitation seen. Left atrium is moderately dilated. The aortic valve is a tissue valve. There ECHOCARDIOGRAM REPORT [id number] TORO AUGUST is no stenosis or regurgitation seen. Right ventricle is mildly dilated. Tricuspid valve is structurally normal. There is mild regurgitation seen. Right ventricular systolic pressure is elevated at 51 mmHg. There is no pericardial effusion noted. IMPRESSION: 1. Left ventricular hypertrophy with moderate LV dysfunction with ejection fraction of 40%. 2. Mild mitral regurgitation. 3. Mild tricuspid regurgitation with elevated pulmonary pressure. 4. Normally functioning prosthetic aortic valve. TRANSINT:[id number] Voice Confirmation ID: [id number] DOCUMENT ID: [id number] PATT BRENNAN M.D. at 1545 CC: [id number] DICTATION DATE: 04/01/16 180 TALENT DEVELOPMENT DIRECTOR: 04/01/161927 DIS IN 04/06/16 [place] [address] [place] [id number]
--- NOTE | 2016-04-09 15:45 | OP ---
PATIENT NAME: TORO AUGUST MEDICAL RECORD: [id number] :34 LOCATION:D.M2 D.2118 ADMISSION DATE:03/30/16 SURGEON: PATT VELOZ M.D. DATE OF OPERATION: 04/05/2016 REFERRING PHYSICIAN: Dr. Grant Gastelum. PROCEDURES PERFORMED: 1. Selective coronary angiography. 2. Left internal mammary injection. 3. Bypass angiography. 4. Aortic root injection INDICATION: An 80-year-old gentleman presents with symptoms of congestive heart failure and recurrent angina. EQUIPMENT USED: A 5-Vincentian JL4, AR2, mammary catheter, pigtail catheter. TECHNIQUE: A 5-Vincentian sheath was inserted in retrograde fashion in the right common femoral artery. Next, selective coronary angiography was performed in standard 5-Vincentian JL4 and AR modified catheters. Bypass angiography was performed using AR2 catheter. The internal mammary was selected with internal mammary catheter. Finally, aortic root injection performed using a pigtail catheter. CORONARY ANATOMY: 1. Left main: Left main trunk is moderate in caliber. It gives rise to the LAD and circumflex. It has no obstruction. 2. LAD: This vessel is 100% occluded. There is competitive flow seen to this area. 3. Circumflex: This vessel is moderate in caliber. There is a 99% stenosis proximally. The vessel appears to be occluded after the first marginal branch. There is competitive flow to the first marginal branch. 4. Right coronary artery: This vessel is occluded just beyond the origin. 5. Saphenous vein graft to PDA: This graft is widely patent throughout its course. There is a stent placed beyond the anastomosis, appears widely patent. 6. Saphenous vein graft to obtuse marginal branch: This actually appears to be a skip graft to the first diagonal branch as well as the lateral branch and circumflex. Both limbs are patent. 7. Left internal mammary artery to the LAD: This graft is widely patent throughout its course. 8. Ascending aorta: The ascending aorta appears to be of normal caliber. There is a tissue valve in the aortic position. I do not see any insufficiency. IMPRESSION: 1. Patent bypass grafts to the left anterior descending, circumflex and right coronary artery. 2. Normal left ventricular function, prosthetic aortic valve. RECOMMENDATIONS: At this point, we will continue with medical management. TRANSINT:[id number] Voice Confirmation ID: [id number] DOCUMENT ID: [id number] OPERATIVE REPORT [id number] TORO AUGUST,PATT Boyd M.D. at 1545 CC: [id number] DICTATION DATE: 04/05/16 0936 RESORT KEEPER: 04/05/16 1026 DIS IN 04/06/16 [facility] [address] [place] [id number]
== END 2016-04-06 14:53 | disposition home or self-care (01) | DRG 280 ==
LOC: D.ER 14:58 → D.M2 16:49
PROVIDERS: Emergency Medicine; Internal Medicine Cardiovascular Disease; Internal Medicine Nephrology; ADMIT Family Medicine
PROC: B215YZZ Fluoroscopy of Left Heart using Other Contrast (ICD-10-PCS; 2016-04-05)
PROC: B213YZZ Fluoroscopy of Multiple Coronary Artery Bypass Grafts using Other Contrast (ICD-10-PCS; 2016-04-05)
PROC: B310YZZ Fluoroscopy of Thoracic Aorta using Other Contrast (ICD-10-PCS; 2016-04-05)
PROC: B211YZZ Fluoroscopy of Multiple Coronary Arteries using Other Contrast (ICD-10-PCS; principal; 2016-04-05 13:00)
DX: I21.4 Non-ST elevation (NSTEMI) myocardial infarction (principal); I50.21 Acute systolic (congestive) heart failure; I13.0 Hypertensive heart and chronic kidney disease with heart failure and stage 1 through stage 4 chronic kidney disease, or unspecified chronic kidney disease; N18.4 Chronic kidney disease, stage 4 (severe); N17.9 Acute kidney failure, unspecified; N25.81 Secondary hyperparathyroidism of renal origin; I25.10 Atherosclerotic heart disease of native coronary artery without angina pectoris; D75.82 Heparin induced thrombocytopenia (HIT); J44.9 Chronic obstructive pulmonary disease, unspecified; Z95.2 Presence of prosthetic heart valve

== ENCOUNTER → 2016-05-28 08:49 | Outpatient (CLI) | payer MEDICARE ==
[2016-04-03 12:59] VITALS: BMI 26.8
[~2016-05-28 08:49] MED LIST changes: +FLORAJEN3 CAPS460 MG PO; +FLUTICASONE PRO16 GM NASAL; +MUCINEX600 MG PO; +OFEV PO; +PREDNISONE20 MG PO; +PROTONIX40 MG PO; +SINGULAIR10 MG PO; +VIBRAMYCIN 100100 MG PO
[2016-05-28 09:51] LABS: ALBUMIN 3.1 g/dL (3.4-5.0); BILIRUBIN - DIRECT 0.11 mg/dL (0.00-0.30); BILIRUBIN - INDIRECT 0.34 mg/dL (0.00-1.00); BILIRUBIN - TOTAL 0.45 mg/dL (0.2-1.3); PROTEIN - SERUM 6.8 g/dL (6.4-8.2)
== END | disposition home or self-care (01) ==
LOC: D.RAD 08:49
PROVIDERS: Internal Medicine Pulmonary Disease
DX: J84.10 Pulmonary fibrosis, unspecified (principal)

== ENCOUNTER 2016-06-27 17:08 | Inpatient (IN) | payer MEDICARE ==
[~2016-06-27] VITALS: Ht 180.3 cm; Wt 72.5 kg
[~2016-06-27 17:08] MED LIST changes: -FLORAJEN3 CAPS460 MG PO; -FLUTICASONE PRO16 GM NASAL; -MUCINEX600 MG PO; -PREDNISONE20 MG PO; -PROTONIX40 MG PO; -SINGULAIR10 MG PO; -VIBRAMYCIN 100100 MG PO
[2016-06-27 19:17] LABS: BASOPHILS 0.4 % (0.0-2.0); EOSINOPHILS 1.1 % (0-7); HEMOGLOBIN 10.5 g/dL (13.5-17.5); IMMATURE GRANULOCYTES 0.6 % (0-5); LYMPHOCYTES 11.5 % (15-50); MCH 32.2 pg (26.0-34.0); MCHC 33.9 g/dL (31.0-37.0); MCV 95.1 fL (80.0-100.0); MEAN PLATELET VOLUME 10.4 fL (7.4-10.4); MONOCYTES 12.5 % (2-11); NEUTROPHILS 73.9 % (40-80); PLATELET COUNT 67 10x3/uL (130-400); RBC 3.26 10x6/uL (4.20-6.10); RDW 14.9 % (11.5-14.5); WBC 4.7 10x3/uL (4.8-10.8)
[2016-06-27 19:25] LABS: PLATELET ESTIMATE DECREASED
[2016-06-27 19:34] LABS: ALBUMIN 2.1 g/dL (3.4-5.0); ANION GAP 13.1 mmol/L (8-16); BILIRUBIN - TOTAL 0.95 mg/dL (0.2-1.3); CALCIUM 7.8 mg/dL (8.5-10.1); CARBON DIOXIDE 28.6 mmol/L (21.0-32.0); CREATININE - SERUM 3.5 mg/dL (0.6-1.3); POTASSIUM - SERUM 3.7 mmol/L (3.5-5.1)
[2016-06-27 22:47] VITALS: BP 103/56; BMI 22.3
[2016-06-27] MEDS ORDERED: MUCINEX600 MG PO (23:19)
--- NOTE | 2016-06-27 23:26 | NUR ---
PT ARRIVED ON UNIT AT 2245 VIA STRETCHER ESCORTED BY ER NURSE. POSITIONED IN BED FOR COMFORT AND ORIENTED TO ROOM AND CALL LIGHT. ADMISSION ASSESSMENT AND HISTORY COMPLETE. HOME MEDICATION RECONCILLED. GAVE SHACK OF SANDWICH, APPLESAUCE, AND COFFEE. WILL MONITOR CLOSELY FOR NEEDS.
[2016-06-28] VITALS: BP 103/56
[2016-06-28 01:33] LABS: COLOR YELLOW (YELLOW)
[2016-06-28 01:34] LABS: APPEARANCE CLEAR (CLEAR); BILIRUBIN NEGATIVE (NEGATIVE); GLUCOSE NEGATIVE (NEGATIVE); KETONE NEGATIVE (NEGATIVE); LEUKOCYTE ESTERASE NEGATIVE (NEGATIVE); NITRITE NEGATIVE (NEGATIVE); PROTEIN 3+ mg/dL (NEGATIVE)
[2016-06-28 01:41] LABS: BACTERIA FEW /hpf (NONE SEEN); EPITHELIAL CELLS OCC /hpf (0-5); GRANULAR CAST RARE /lpf (NONE SEEN); HYALINE CAST 0-5 /lpf (NONE SEEN); MUCUS <1+ /lpf (NONE SEEN); WHITE CELLS - URINE OCC /hpf (0-5)
[2016-06-28 04:00] VITALS: BP 98/62
[2016-06-28 05:07] LABS: BASOPHILS 0.4 % (0.0-2.0); EOSINOPHILS 0 % (0-7); HEMATOCRIT 30.1 % (42.0-54.0); HEMOGLOBIN 10.1 g/dL (13.5-17.5); IMMATURE GRANULOCYTES 1.2 % (0-5); LYMPHOCYTES 8.1 % (15-50); MCH 32.1 pg (26.0-34.0); MCHC 33.6 g/dL (31.0-37.0); MCV 95.6 fL (80.0-100.0); MEAN PLATELET VOLUME 10.5 fL (7.4-10.4); MONOCYTES 4.6 % (2-11); NEUTROPHILS 85.7 % (40-80); PLATELET COUNT 66 10x3/uL (130-400); RBC 3.15 10x6/uL (4.20-6.10); RDW 15.1 % (11.5-14.5)
[2016-06-28 05:19] LABS: ANION GAP 12.1 mmol/L (8-16); CARBON DIOXIDE 29.4 mmol/L (21.0-32.0); CREATININE - SERUM 3.5 mg/dL (0.6-1.3)
[2016-06-28 05:21] LABS: POTASSIUM - SERUM 4.5 mmol/L (3.5-5.1)
--- NOTE | 2016-06-28 07:45 | NUR ---
PT AOX4 RESP SOB RESP EVEN OXYGEN SAT 97 ON 4L. PT DENIES NEEDS AT THIS TIME BED AT LOWEST SETTING IV TO LEFT FOREARM PATENT AND INTACT CALL LIGHT WITHIN REACH WILL CONTINUE TO MONITOR
[2016-06-28 08:01] VITALS: BP 97/56
--- NOTE | 2016-06-28 14:47 | NUR ---
Patient Name: TORO AUGUST Admission Status: ER Accout number: [id number] Admission Date: 06-27-2016 : 1934 Admission Diagnosis: Attending: HUMBLE Current LOS: 1 Anticipated DC Date: 07-02-2016 Planned Disposition: Home Primary Insurance: lucierna [facility] PF Discharge Planning Comments: CM MET WITH PATIENT AND (HOLLIE) REGARDING D/C NEEDS AND PLANS. PATIENT STATED HE LIVES WITH HIS AND SHE WILL DRIVE HIM HOME AT DISCHARGE. PATIENT HAS 4 STEPS W/RAILS TO ENTER HOME AND NO STAIRS INSIDE. PATIENTS PCP IS DR. CROWELL AND PHARMACY IS [facility] [address] [facility]. PATIENT IS INDEPENDENT WITH HIS CARE AND HAS A WALKER AT HOME. PATIENT HAS OXYGEN AT HOME BUT JUST RESENDED ORDER FEW DAYS AGO WITH [facility]. PATIENT HAS NEVER HAD HOME HEALTH AND DOES NOT THINK HE NEEDS IT AT DISCHARGE. CM WILL CONTINUE TO FOLLOW PATIENT WITH DISCHARGE NEEDS AND PLANS. PCP DR. SOCRATES [facility] [phone] HOLLIE () [phone] Medical Billing Associate: Larisa Charles Is the patient Alert and Oriented? Yes 0 * How many steps to enter\exit or inside your home? 4 W/RAILS 0 * PCP DR. CROWELL 0 * Pharmacy [facility] [address] 0 * Preadmission Environment Home with Family 0 * ADLs Independent 0 * Equipment Walker 0 * Other Equipment PATIENT HAS OXYGEN BUT HAD JUST RESENDED ORDER BUT IT HAS NOT BEEN PICKED UP AT THIS TIME. 0 * List name and contact numbers for known caregivers / representatives who currently or will assist patient after discharge: HOLLIE () [phone] * Community resources currently utilized None 0 * Additional services required to return to the preadmission environment? Yes 0 * Can the patient safely return to the preadmission environment? Yes 0 * Has this patient been hospitalized within the prior 30 days at any hospital? No 0 Grand Total: 0
[2016-06-28 15:04] VITALS: Ht 180.3 cm; Wt 72.5 kg
[2016-06-28 15:44] VITALS: BP 106/65
[2016-06-28 20:00] VITALS: BP 107/59
--- NOTE | 2016-06-28 20:45 | NUR ---
PATIENT RESTING IN BED. NO SIGNS OF DISTRESS NOTED. SCHEDULED MEDS GIVEN. SHIFT ASSESSMENT COMPLETED. DENIES ANY NEEDS AT THIS TIME. BED LOW. CALL LIGHT IN REACH
--- NOTE | 2016-06-28 20:47 | NUR ---
PATIENT RESTING IN BED. NO SIGNS OF DISTRESS NOTED. DENIES ANY PAIN AT THIS TIME. SCHEDULED MED GIVEN. SHIFT ASSESSMENT COMPLETED. DENIES ANY NEEDS AT THIS TIME. BED LOW. CALL LIGHT IN REACH
[2016-06-29] VITALS: BP 95/45
[2016-06-29 04:00] VITALS: BP 124/71
[2016-06-29 05:23] LABS: BASOPHILS 0.2 % (0.0-2.0); EOSINOPHILS 0 % (0-7); HEMATOCRIT 27.4 % (42.0-54.0); HEMOGLOBIN 9.4 g/dL (13.5-17.5); IMMATURE GRANULOCYTES 0.5 % (0-5); LYMPHOCYTES 9.7 % (15-50); MCH 32.5 pg (26.0-34.0); MCHC 34.3 g/dL (31.0-37.0); MCV 94.8 fL (80.0-100.0); MEAN PLATELET VOLUME 11.6 fL (7.4-10.4); MONOCYTES 8.3 % (2-11); NEUTROPHILS 81.3 % (40-80); RBC 2.89 10x6/uL (4.20-6.10); RDW 15.2 % (11.5-14.5); WBC 5.8 10x3/uL (4.8-10.8)
[2016-06-29 05:25] LABS: PLATELET COUNT 85 10x3/uL (130-400)
[2016-06-29 06:22] LABS: ANION GAP 14.9 mmol/L (8-16); CALCIUM 7.9 mg/dL (8.5-10.1); CARBON DIOXIDE 25.2 mmol/L (21.0-32.0); CREATININE - SERUM 3.3 mg/dL (0.6-1.3); MAGNESIUM - SERUM 1.9 mg/dL (1.8-2.4); PHOSPHOROUS 4.9 mg/dL (2.5-4.9); POTASSIUM - SERUM 4.1 mmol/L (3.5-5.1)
--- NOTE | 2016-06-29 07:15 | NUR ---
REPORT RECEIVED FROM RIBBON LAP MACHINE TENDER NURSE. CALL LIGHT IN REACH.
--- NOTE | 2016-06-29 07:52 | HP ---
PATIENT: TORO AUGUST MEDICAL RECORD: [id number] ACCOUNT: [id number] LOCATION:D.MS [id number] : 34 ADMISSION DATE: 06/27/16 HISTORY AND PHYSICAL EXAMINATION Admission History and Physical An 80-year-old male. HISTORY OF PRESENT ILLNESS: The patient presents to the Emergency Room after 5 days of progressive shortness of breath, weakness, fever and chills at home. Denies nausea or vomiting. PAST MEDICAL HISTORY: Significant for pulmonary fibrosis, pulmonary hypertension, bypass surgery and valve replacement surgery, and heart catheterization in March, no significant changes, chronic kidney disease, and COPD. SOCIAL HISTORY: , works at the [employer]. ALLERGIES: No known drug allergies. CURRENT MEDICATIONS: Combivent, Respimat inhaler, DuoNebs, Symbicort, Mucinex, and Ofev 150 mg b.i.d. REVIEW OF SYSTEMS: GENERAL: Decreased appetite with recent illness. HEENT: No cephalgia, visual changes, tinnitus, epistaxis, or dysphagia. CARDIOVASCULAR: Denies chest pain or palpitation. Admits shortness of breath with exertion related to his pulmonary function. PULMONARY: Denies hemoptysis. Denies night sweats. Admits to nonproductive cough, fever and chills and progressive shortness of breath. GASTROINTESTINAL: Denies hematemesis, hematochezia, or melena. GENITOURINARY: Denies dysuria. MUSCULOSKELETAL: No acute changes other than increased weakness with acute illness. PHYSICAL EXAMINATION: VITAL SIGNS: Temperature 98.4, blood pressure is 98/62, heart rate 70, respirations 18, and O2 sats 98% on 2 liters via nasal cannula. HEENT: Head is normocephalic and atraumatic. Eyes: Pupils are equally round and reactive to light and accommodation. Extraocular muscles intact. Conjunctiva was not injected. Ears: Canals patent. TMs are intact. Nose: Nares patent without drainage. Throat: No erythema, no exudates. NECK: Supple. No lymphadenopathy. HEART: Regular rate and rhythm. No S3, S4, no rub. LUNGS: Coarse rhonchi at the bases, left greater than right. ABDOMEN: Soft and nontender. Bowel sounds all 4 quadrants. EXTREMITIES: Present times 4. No edema. NEUROLOGIC: No focal deficits. SKIN: Warm, dry. No rash. LABORATORY DATA: CBC: White count 5000, hemoglobin 10.1, hematocrit 30.1, platelets 66, and neutrophils 85.7. Chemistry shows a sodium of 138, potassium 4.5, chloride 101, bicarbonate 29.4, BUN 63, creatinine 3.5, GFR 22, and glucose HISTORY AND PHYSICAL [id number] TORO AUGUST J 203. Calcium is 8. Urinalysis yellow, clear, 1+ blood, negative for nitrites, few bacteria. DIAGNOSTIC DATA: Chest x-ray: Lungs are slightly hypoinflated, increased interstitial markings, particularly within the lung bases. No pleural effusion. Concern for evolving infiltrate. ASSESSMENT AND PLAN: Pneumonia, pancytopenia, chronic, tfraf-su-ufhvjts renal insufficiency and generalized weakness. The patient is admitted. DuoNebs, IV antibiotics, cautious hydration with his renal insufficiency, monitor, consult hematology for the pancytopenia. Supportive care. Monitor renal function. Accurate I's and O's. TRANSINT:[id number] Voice Confirmation ID: [id number] DOCUMENT ID: [id number] FLORECITA CROWELL DO at 0752 CC: [id number] DICTATION DATE: 06/28/16 0808 FARM IMPLEMENT MECHANIC: 06/28/16 0909 ADM IN [facility] [address] [place] [address]
--- NOTE | 2016-06-29 08:20 | NUR ---
ASSESSMENT COMPLETED. OFFERED SCDs BUT REFUSED EVEN AFTER EXPLAINING IMPORTANCE. CALL LIGHT IN REACH. WILL CONTINUE WITH PLAN OF CARE.
[2016-06-29 08:50] VITALS: BP 126/70
--- NOTE | 2016-06-29 10:28 | NUR ---
PASSWORD OBTAINED. [facility] PLACED IN FOR STOOL SAMPLE.
--- NOTE | 2016-06-29 10:39 | NUR ---
JOSEHINat IVPB AND MILK OF MAG PO.
[2016-06-29 12:59] VITALS: BP 108/61
--- NOTE | 2016-06-29 12:59 | NUR ---
EATING LUNCH AT THIS TIME. CALL LIGHT IN REACH.
--- NOTE | 2016-06-29 14:20 | NUR ---
NO NEEDS VOICED AT THIS TIME. CALL LIGHT IN REACH.
--- NOTE | 2016-06-29 15:19 | NUR ---
PROCRIT SUBQ TO RLQ. NEW BAG OF NS INITIATED.
--- NOTE | 2016-06-29 15:27 | NUR ---
RESTING QUIETLY IN BED. AT BEDSIDE. DENIES NEEDS AT THIS TIME. LUNGS ARE CLEAR THROUGHOUT BUT DIMINISHED. NO COUGH NOTED. DENIES PAIN.
[2016-06-29 16:33] VITALS: BP 106/58
--- NOTE | 2016-06-29 17:20 | NUR ---
EATING LUNCH AT THIS TIME. CALL LIGHT IN REACH.
[2016-06-29 19:00] VITALS: BP 124/73
--- NOTE | 2016-06-29 19:00 | NUR ---
NO CHANGES IN INITIAL ASSESSMENT. CALL LIGHT IN REACH. BED ALARM ON. SCDs TO BLE. WILL CONTINUE WITH PLAN OF CARE.
[2016-06-30 00:23] VITALS: BP 122/75
--- NOTE | 2016-06-30 01:27 | NUR ---
ASESSED AT THE BEGINNING OF THE SHIFT. PT IS ALWER AND ORIENTED, ABLE TO VERBALIZE NEEDS. WE ARE ASSISTING HIM UP TO THE BATHROOM TO VOID AND HE ALSO KNOWS THAT WE NEED A STOOL SAMPLE. HE IS JUST A LITTLE WEAK AND WE DONT WANT HIM TO FALL. TELEMETRY IS IN PLACE BUT SCD'S HAVE BEEN REFUSED. O2 IS AT 2 LITERS AND HIS RESPIRATIONS ARE EASY. THE BED IS LOW, RAILS UP X'S 2 WITH THE CALL LIGHT AT HAND.
[2016-06-30 04:00] VITALS: BP 111/73
[2016-06-30 05:21] LABS: BASOPHILS 0.3 % (0.0-2.0); EOSINOPHILS 3.8 % (0-7); HEMATOCRIT 29.1 % (42.0-54.0); HEMOGLOBIN 9.8 g/dL (13.5-17.5); LYMPHOCYTES 21.5 % (15-50); MCHC 33.7 g/dL (31.0-37.0); MCV 95.1 fL (80.0-100.0); MEAN PLATELET VOLUME 11.3 fL (7.4-10.4); MONOCYTES 9.4 % (2-11); PLATELET COUNT 89 10x3/uL (130-400); RBC 3.06 10x6/uL (4.20-6.10); RDW 15.1 % (11.5-14.5); WBC 6.3 10x3/uL (4.8-10.8)
[2016-06-30 05:51] LABS: ALBUMIN 2.1 g/dL (3.4-5.0); ANION GAP 14.9 mmol/L (8-16); BILIRUBIN - TOTAL 0.24 mg/dL (0.2-1.3); CALCIUM 7.9 mg/dL (8.5-10.1); CARBON DIOXIDE 23.3 mmol/L (21.0-32.0); POTASSIUM - SERUM 4.2 mmol/L (3.5-5.1); PROTEIN - SERUM 5.7 g/dL (6.4-8.2)
[2016-06-30 05:54] LABS: PHOSPHOROUS 3.3 mg/dL (2.5-4.9)
--- NOTE | 2016-06-30 08:08 | NUR ---
AWAKE AND ALERT. ORIENTED X3. NO C/O AT THIS TIME. REPORTS PASSING GAS FOR NOW. LUNGS HAVE CRACKLES THROUGHOUT LUNG LI MORE SO ON THE LEFT, REPORTS INCREASED COUGH NONPRODUCTIVE. SKIN IS INTACT WITHOUT REDNESS. IV TO LEFT FOREARM IS PATENT WITHOUT REDNESS AT INSERTION SITE. DENIES NEEDS. SCD'S IN PLACE.
[2016-06-30 08:15] LABS: FOLATE (FOLIC ACID) - SERUM 8.3 ng/mL (>3.0)
[2016-06-30 08:20] VITALS: BP 118/72
[2016-06-30 12:55] VITALS: BP 117/61
[2016-06-30 16:37] VITALS: BP 98/51
--- NOTE | 2016-06-30 18:30 | NUR ---
ATE MOST OF SUPPER SITTING UP IN CHAIR AT BEDSIDE. NO C/O AT THIS TIME. DENIES NEEDS. NO CHANGES NOTED.
[2016-06-30 20:00] VITALS: BP 144/75
[2016-07-01] VITALS: BP 129/74
[2016-07-01 04:00] VITALS: BP 121/65
--- NOTE | 2016-07-01 04:45 | NUR ---
PATIENT RESTING WITH EYES CLOSED AND NO VISIBLE SIGNS OF DISTRESS. BED IN LOWEST POSITION AND CALL LIGHT WITHIN REACH.
[2016-07-01 07:01] LABS: BASOPHILS 0.3 % (0.0-2.0); EOSINOPHILS 7.4 % (0-7); HEMATOCRIT 27.2 % (42.0-54.0); HEMOGLOBIN 9.3 g/dL (13.5-17.5); IMMATURE GRANULOCYTES 2.1 % (0-5); LYMPHOCYTES 18.5 % (15-50); MCH 32.3 pg (26.0-34.0); MCHC 34.2 g/dL (31.0-37.0); MCV 94.4 fL (80.0-100.0); MEAN PLATELET VOLUME 10.5 fL (7.4-10.4); MONOCYTES 6.6 % (2-11); NEUTROPHILS 65.1 % (40-80); PLATELET COUNT 87 10x3/uL (130-400); RBC 2.88 10x6/uL (4.20-6.10); RDW 15.5 % (11.5-14.5); WBC 6.3 10x3/uL (4.8-10.8)
[2016-07-01 07:19] LABS: ANION GAP 14.4 mmol/L (8-16); CALCIUM 7.4 mg/dL (8.5-10.1); CARBON DIOXIDE 23.6 mmol/L (21.0-32.0); CREATININE - SERUM 2.6 mg/dL (0.6-1.3)
--- NOTE | 2016-07-01 07:30 | NUR ---
AWAKE AND ALERT. ORIENTED X3. INCONTINENT LARGE AMOUNT OF URINE. SKIN CARE PER STAFF. LINENS CHANGED. LUNGS ARE CLEAR BUT DIMINISHED AT THIS TIME. NO COUGH NOTED. SKIN IS INTACT WITHOUT REDNESS. IV TO LEFT FOREARM IS PATENT WITHOUT REDNESS AT INSERTION SITE. DENIES NEEDS.
[2016-07-01 07:59] LABS: APTT 33.6 SECONDS (22.8-39.4); INR 1.2 (0.85-1.17); PROTIME 15.1 SECONDS (11.6-15.0)
[2016-07-01 10:07] VITALS: BP 123/61
--- NOTE | 2016-07-01 11:15 | NUR ---
SITTING UP IN CHAIR AT BEDSIDE. DENIES NEEDS.
[2016-07-01 12:50] VITALS: BP 111/70
[2016-07-01 17:17] VITALS: BP 106/60
--- NOTE | 2016-07-01 18:35 | NUR ---
ATE ABOUT HALF OF SUPPER. NO CHANGES NOTED. DENIES NEEDS.
[2016-07-01 19:00] VITALS: BP 123/65
--- NOTE | 2016-07-01 20:00 | NUR ---
REC'D IN BED AWAKE AND ALERT. RESP EVEN AND UNLABORED WITH NO DISTRESS NOTED. NO C/O PAIN OR DISCOMFORT NOTED. ASSESSMENT COMPLETED. C/L IN REACH AT BEDSIDE.
[2016-07-02] VITALS: BP 129/66
[2016-07-02 04:00] VITALS: BP 128/66
[2016-07-02 04:57] LABS: BASOPHILS 0 % (0.0-2.0); EOSINOPHILS 0 % (0-7); HEMATOCRIT 27.6 % (42.0-54.0); HEMOGLOBIN 9.7 g/dL (13.5-17.5); LYMPHOCYTES 9.7 % (15-50); MCH 32.9 pg (26.0-34.0); MCHC 35.1 g/dL (31.0-37.0); MCV 93.6 fL (80.0-100.0); MEAN PLATELET VOLUME 11.1 fL (7.4-10.4); MONOCYTES 2.3 % (2-11); RBC 2.95 10x6/uL (4.20-6.10); RDW 15.2 % (11.5-14.5)
[2016-07-02 05:11] LABS: PLATELET COUNT 110 10x3/uL (130-400); WBC 4.7 10x3/uL (4.8-10.8)
[2016-07-02 05:43] LABS: ANION GAP 17.4 mmol/L (8-16); CALCIUM 7.6 mg/dL (8.5-10.1); CARBON DIOXIDE 20.2 mmol/L (21.0-32.0); CREATININE - SERUM 2.5 mg/dL (0.6-1.3); POTASSIUM - SERUM 4.6 mmol/L (3.5-5.1)
--- NOTE | 2016-07-02 07:35 | NUR ---
PT AOX4 RESP EVEN AND NONLABORED PT DENIES NEEDS AT THIS TIME IV TO RIGHT FOREARM PATENT AND INTACT SRX2 BED AT LOWEST SETTING CALL LIGHT WITHIN REACH WILL CONTINUE TO MONITOR
[2016-07-02 08:39] VITALS: BP 122/66
[2016-07-02 15:23] VITALS: BP 127/64
[2016-07-02 17:10] LABS: SPE - A/G RATIO 0.8 (0.7-1.7); SPE - ALBUMIN 2.2 g/dL (2.9-4.4); SPE - ALPHA-1 GLOBULIN 0.5 g/dL (0.0-0.4); SPE - ALPHA-2 GLOBULIN 0.8 g/dL (0.4-1.0); SPE - BETA GLOBULIN 0.7 g/dL (0.7-1.3); SPE - GAMMA GLOBULIN 0.7 g/dL (0.4-1.8); SPE - M-SPIKE Not Observed g/dL (Not Observed); SPE - TOTAL PROTEIN 4.9 g/dL (6.0-8.5)
[2016-07-02 20:00] VITALS: BP 129/78
[2016-07-02 21:10] LABS: IMMUNOFIXATION Note: (()); IMMUNOGLOBULIN A 301 mg/dL (61-437); IMMUNOGLOBULIN G 681 mg/dL (700-1600); IMMUNOGLOBULIN M 54 mg/dL (15-143)
[2016-07-03] VITALS: BP 134/70
[2016-07-03 04:00] VITALS: BP 122/66
[2016-07-03 06:05] LABS: BASOPHILS 0 % (0.0-2.0); EOSINOPHILS 0 % (0-7); HEMATOCRIT 28.1 % (42.0-54.0); HEMOGLOBIN 9.4 g/dL (13.5-17.5); IMMATURE GRANULOCYTES 4.8 % (0-5); LYMPHOCYTES 10.5 % (15-50); MCH 31.6 pg (26.0-34.0); MCHC 33.5 g/dL (31.0-37.0); MCV 94.6 fL (80.0-100.0); MEAN PLATELET VOLUME 10.2 fL (7.4-10.4); MONOCYTES 4.8 % (2-11); NEUTROPHILS 79.9 % (40-80); PLATELET COUNT 123 10x3/uL (130-400); RBC 2.97 10x6/uL (4.20-6.10); RDW 15.4 % (11.5-14.5); WBC 5.5 10x3/uL (4.8-10.8)
[2016-07-03 06:59] LABS: ANION GAP 14.5 mmol/L (8-16); CARBON DIOXIDE 21.6 mmol/L (21.0-32.0); CREATININE - SERUM 2.6 mg/dL (0.6-1.3); MAGNESIUM - SERUM 1.8 mg/dL (1.8-2.4); POTASSIUM - SERUM 5.1 mmol/L (3.5-5.1)
--- NOTE | 2016-07-03 07:22 | NUR ---
PATIENT RESTING IN BED AND DENIES NEEDS AT THIS TIME. BED IN LOWEST POSITION AND CALL LIGHT WITHIN REACH. ENCOURAGED PATIENT TO CALL IF HE HAS FURTHER NEEDS.
--- NOTE | 2016-07-03 08:27 | NUR ---
PT AOX4 RESP EVEN AND NONLABORED SRX2 CALL LIGHT WITHIN REACH PT DENIES NEEDS AT THIS TIME IV TO RIGHT FOREARM PATENT AND INTACT BED AT LOWEST SETTING WILL CONTINUE TO MONITOR
[2016-07-03 09:09] VITALS: BP 125/64
[2016-07-03 11:41] VITALS: BP 132/70
--- NOTE | 2016-07-03 14:21 | NUR ---
NUTRITION MONITORING & EVAL PT VISIT. PT TOLERATING RENAL DIET WITH GOOD PO INTAKE. WILL CONTINUE TO PROVIDE DIET, HONOR FOOD PREFERENCES WITHIN DIET RESTRICTIONS. MONITOR PO INTAKE. RD FOLLOWING
--- NOTE | 2016-07-03 19:00 | NUR ---
PATIENT SITTING UP IN CHAIR WATCHING TV. AAOX4. RR EVEN AND UNLABORED. O2 @ 2L VIA NC. 0 S/S OF DISTRESS. STATES PAIN IS A 4/10 BECAUSE OF THE REDNESS ON HIS BUTTOCKS. IV TO RIGHT FA PATENT WITH NO REDNESS OR SWELLING. TELEMETRY ON. CALL LIGHT WITHIN REACH.
[2016-07-03 19:51] VITALS: BP 128/75
--- NOTE | 2016-07-03 22:00 | NUR ---
ASSESSMENT COMPLETE. NIGHTTIME MEDS GIVEN. ASSISTED PATIENT BACK INTO BED. NO OTHER NEEDS AT THIS TIME.
[2016-07-03 23:41] VITALS: BP 132/70
--- NOTE | 2016-07-04 02:10 | NUR ---
PATIENT SLEEPING WITH NO DISTRESS NOTED. CALL LIGHT WITHIN REACH.
[2016-07-04 04:01] VITALS: BP 121/66
[2016-07-04 04:24] LABS: BASOPHILS 0.2 % (0.0-2.0); EOSINOPHILS 0 % (0-7); HEMOGLOBIN 9.3 g/dL (13.5-17.5); LYMPHOCYTES 8.9 % (15-50); MCH 32.3 pg (26.0-34.0); MCHC 33.2 g/dL (31.0-37.0); MEAN PLATELET VOLUME 10.9 fL (7.4-10.4); MONOCYTES 2.8 % (2-11); NEUTROPHILS 81.1 % (40-80); PLATELET COUNT 137 10x3/uL (130-400); RBC 2.88 10x6/uL (4.20-6.10); RDW 15.7 % (11.5-14.5); WBC 6.4 10x3/uL (4.8-10.8)
[2016-07-04 04:26] LABS: MCV 97.2 fL (80.0-100.0)
[2016-07-04 04:58] LABS: ALBUMIN 2.2 g/dL (3.4-5.0); ANION GAP 18.1 mmol/L (8-16); BILIRUBIN - TOTAL 0.29 mg/dL (0.2-1.3); CALCIUM 7.9 mg/dL (8.5-10.1); CREATININE - SERUM 2.6 mg/dL (0.6-1.3); POTASSIUM - SERUM 5.1 mmol/L (3.5-5.1); PROTEIN - SERUM 5.2 g/dL (6.4-8.2)
--- NOTE | 2016-07-04 06:00 | NUR ---
PATIENT AMBULATED TO BATHROOM AND IS NOW IN CHAIR. MORNING MED GIVEN. NO OTHER NEEDS.
[2016-07-04 08:23] VITALS: BP 120/63
--- NOTE | 2016-07-04 08:43 | NUR ---
AWAKE AND ALERT. ORIENTED X3. SITTING UP IN CHAIR AT BEDSIDE. LUNGS HAVE FAINT CRACKLES ON LEFT SIDE, OCCASSIONAL DRY COUGH NOTED. SKIN IS INTACT WITHOUT REDNESS EXCEPT REDNESS TO COCCYX NOTED. BUTT BALM APPLIED TO AREA. WILL MONITOR. SL TO RIGHT FOREARM IS PATENT WTIHOUT REDNESS AT INSERTION SITE. DENIES NEEDS. ATE ALL OF BREAKFAST.
--- NOTE | 2016-07-04 10:00 | NUR ---
RESTING QUIETLY. DENIES NEEDS.
[2016-07-04 13:05] VITALS: BP 128/75
--- NOTE | 2016-07-04 15:13 | NUR ---
CM REASSESSMENT NOTE: PATIENT HAS BEEN ACCEPTED TO IP REHAB AND SHOULD GO THERE ON DISCHARGE.
--- NOTE | 2016-07-04 15:22 | NUR ---
Rehab Prescreen order received. Will plan to admit to [facility] IRF tomorrow. Spoke with the patient and his and answered all questions concerning acute rehab. [employer] contacted- spoke with margarito Roldan PreAut required. Ref #[id number]. Spoke with YUMI Peres about patient being accepted for admit Th07/05. Thank you for this referral! Chinyere Peterson RN Clinical Liaison, [facility] Rehab/Suraj
[2016-07-04 16:12] VITALS: BP 106/60
[2016-07-04 19:00] VITALS: BP 125/62
--- NOTE | 2016-07-04 19:32 | NUR ---
ATE ABOUT HALF OF SUPPER. NO CHANGES NOTED. DENIES NEEDS. RESTING QUIETLY IN BED.
[2016-07-04 23:38] VITALS: BP 125/62
--- NOTE | 2016-07-05 00:56 | NUR ---
PATIENT LYING IN BED. NO DISTRESS NOTED. DENIED PAIN AT THIS TIME. IS WANTING COFFEE. DENIED FUTHER NEEDS AT THIS TIME. WILL ADMINISTER MEDS PRESCRIBED. BED LOW, LOCKED, CALL LIGHT IN REACH.
--- NOTE | 2016-07-05 03:17 | NUR ---
PATIENT IS RESTING IN BED. DENIES PAIN AT THIS TIME. DENIES FURTHER NEEDS AT THIS TIME. NO DISTRESS NOTED. BED LOW, LOCKED, CALL LIGHT IN REACH.
[2016-07-05 04:00] VITALS: BP 123/78
--- NOTE | 2016-07-05 06:15 | NUR ---
PATIENT IS RESTING IN BED. NO DISTRESS NOTED. DENIED PAIN AT THIS TIME. DENIED FURTHER NEEDS AT THIS TIME. PT IS GOING TO REHAB TODAY. INSTRUCTED TO CALL IF NEEDED ANYTHING. BED LOW, LOCKED, CALL LIGHT IN REACH.
--- NOTE | 2016-07-05 07:43 | NUR ---
AWAKE AND ALERT. ORIENTED X3. NO C/O THIS AM. LUNGS ARE CLEAR BILATERALLY BUT DIMINISHED THROUGHOUT. NO COUGH NOTED. SKIN IS INTACT WITHOUT REDNESS EXCEPT TO COCCYX AREA WHICH IS REDDENED BUT NOT BROKEN. SL TO RIGHT FOREARM IS PATENT WITHOUT REDNESS AT INSERTION SITE. DENIES NEEDS.
[2016-07-05] MEDS ORDERED: VIBRAMYCIN 100100 MG PO (07:53)
[2016-07-05] MEDS ORDERED: SINGULAIR10 MG PO (07:54)
[2016-07-05] MEDS ORDERED: FLUTICASONE PRO16 GM NASAL (07:54)
[2016-07-05] MEDS ORDERED: FLORAJEN3 CAPS460 MG PO (07:55)
[2016-07-05] MEDS ORDERED: PROTONIX40 MG PO (07:55)
[2016-07-05] MEDS ORDERED: PREDNISONE20 MG PO (07:57)
--- NOTE | 2016-07-05 09:13 | NUR ---
PATIENT IS DISCHARGING TO IP REHAB TODAY- AWARE
[2016-07-05 09:29] VITALS: BP 121/64
--- NOTE | 2016-07-05 10:46 | NUR ---
UP IN CHAIR AT BEDSIDE.
[2016-07-05 12:58] VITALS: BP 120/61
--- NOTE | 2016-07-05 15:20 | NUR ---
REPORT CALLED TO JANAK GUILLEN IN REHAB. ALL QUESTIONS ANSWERED.
--- NOTE | 2016-07-05 16:00 | NUR ---
DISCHARGED TO REHAB TO ROOM 1108B VIA AMBULATORY. AT BEDSIDE.
--- NOTE | 2016-07-06 07:54 | DS ---
PATIENT:TORO AUGUST :33 MEDICAL RECORD: [id number] DISCHARGE SUMMARY ADMISSION DATE: 06/27/16 DISCHARGE DATE: 07/05/16 DATE OF ADMISSION: 06/27/2016 DATE OF DISCHARGE: 07/05/2016 ADMISSION DIAGNOSES: Pneumonia, pancytopenia, dlwdm-[id number] renal insufficiency, generalized weakness. DISCHARGE DIAGNOSES: Pneumonia, exacerbation of chronic obstructive pulmonary disease, pulmonary fibrosis, kpgaq-cr-nwdfcbv renal insufficiency, generalized weakness. HOSPITAL COURSE: The patient was admitted to the Emergency Room with worsening shortness of breath. He has a history significant for pulmonary fibrosis, pulmonary hypertension, bypass surgery, valve replacement, chronic kidney disease, COPD, has increasing shortness of breath. His workup was ensued. CBC showed white count of 5000, hemoglobin 10.1, hematocrit 30.1, platelets 66, neutrophils 85.7. Chest x-ray showed increased interstitial markings. No pleural effusion. There was concern for evolving infiltrate. The patient was admitted. Pulmonology consulted. Hematology consulted for pancytopenia. Nephrology consulted with his worsening renal function. The patient is cautiously given fluids. Cultures were negative. Stool is negative for occult blood. No significant findings on hematology workup. Recommend bone marrow biopsy as outpatient. The patient remained stable. He is ambulating with oxygen, anxious to go home, does not qualify for rehab through his insurance, will be discharged to home with home health, physical therapy and respiratory therapy. The patient was discharged to home in stable and improved condition. VITAL SIGNS ON DISCHARGE: Temperature 97.5, heart rate 78, respirations 18, blood pressure 123/78, O2 sats 97% on 2 L via nasal cannula. The patient will follow up with Dr. Cabezas in 2-4 weeks. He will follow up in the clinic in 10 days and as needed. LABORATORY DATA: Chemistry on discharge: Sodium 141, potassium 5.1, chloride 107, bicarbonate 21, BUN 78, creatinine 2.6, this has returned to baseline. Please see chart for further details. MEDICATIONS: Per med rec. TRANSINT:[id number] Voice Confirmation ID: [id number] DOCUMENT ID: [id number] FLORECITA CROWELL DO at 0754 CC: [id number] DICTATION DATE: 07/05/16 08 CHILDREN'S SERVICE WORKER: 07/05/16 1103 DIS IN 07/05/16 [facility] [address] [facility] [place] [address]
== END 2016-07-05 16:00 | DRG 189 ==
LOC: D.ER 17:08 → D.MS 21:56
PROVIDERS: Family Medicine; Internal Medicine Hematology & Oncology; Internal Medicine Pulmonary Disease; Physician Assistant; ADMIT Family Medicine
DX: J96.20 Acute and chronic respiratory failure, unspecified whether with hypoxia or hypercapnia (principal); D61.818 Other pancytopenia; I13.0 Hypertensive heart and chronic kidney disease with heart failure and stage 1 through stage 4 chronic kidney disease, or unspecified chronic kidney disease; N18.4 Chronic kidney disease, stage 4 (severe); I50.22 Chronic systolic (congestive) heart failure; N17.9 Acute kidney failure, unspecified; I27.2 Other secondary pulmonary hypertension; J84.10 Pulmonary fibrosis, unspecified; J44.9 Chronic obstructive pulmonary disease, unspecified; J45.909 Unspecified asthma, uncomplicated; E53.1 Pyridoxine deficiency; D63.1 Anemia in chronic kidney disease; I25.10 Atherosclerotic heart disease of native coronary artery without angina pectoris; Z95.1 Presence of aortocoronary bypass graft

== ENCOUNTER 2016-07-05 15:18 | Inpatient (IN) | payer MEDICARE ==
[~2016-07-05 15:18] MED LIST changes: +FLORAJEN3 CAPS460 MG PO; +FLUTICASONE PRO16 GM NASAL; +MUCINEX600 MG PO; +PREDNISONE20 MG PO; +PROTONIX40 MG PO; +SINGULAIR10 MG PO; +VIBRAMYCIN 100100 MG PO
[2016-07-05 18:03] LABS: CARBON DIOXIDE 25.5 mmol/L (21.0-32.0); CREATININE - SERUM 2.6 mg/dL (0.6-1.3); POTASSIUM - SERUM 5.5 mmol/L (3.5-5.1)
[2016-07-06 07:02] LABS: BASOPHILS 0.2 % (0.0-2.0); EOSINOPHILS 0.8 % (0-7); HEMOGLOBIN 9.3 g/dL (13.5-17.5); IMMATURE GRANULOCYTES 5.9 % (0-5); LYMPHOCYTES 22.3 % (15-50); MCHC 33.2 g/dL (31.0-37.0); MCV 96.2 fL (80.0-100.0); MEAN PLATELET VOLUME 10.8 fL (7.4-10.4); MONOCYTES 7.5 % (2-11); NEUTROPHILS 63.3 % (40-80); PLATELET COUNT 128 10x3/uL (130-400); RBC 2.91 10x6/uL (4.20-6.10); RDW 16.2 % (11.5-14.5); WBC 6.6 10x3/uL (4.8-10.8)
[2016-07-09 07:12] LABS: BASOPHILS 0.1 % (0-2); EOSINOPHILS 0.1 % (0-7); HEMATOCRIT 30.7 % (42.0-54.0); HEMOGLOBIN 10.3 g/dL (13.5-17.5); IMMATURE GRANULOCYTES 1.8 % (0-5); LYMPHOCYTES 6.3 % (15-50); MCH 32.3 pg (26.0-34.0); MCHC 33.6 g/dL (31.0-37.0); MCV 96.2 fL (80.0-100.0); MEAN PLATELET VOLUME 11.2 fL (7.4-10.4); MONOCYTES 3.3 % (2-11); NEUTROPHILS 88.4 % (40-80); PLATELET COUNT 105 10x3/uL (130-400); RBC 3.19 10x6/uL (4.20-6.10); RDW 16.7 % (11.5-14.5); WBC 8.3 10x3/uL (4.8-10.8)
[2016-07-09 07:30] LABS: ANION GAP 15.9 mmol/L (8-16); CALCIUM 7.7 mg/dL (8.5-10.1); CARBON DIOXIDE 21.1 mmol/L (21.0-32.0); CREATININE - SERUM 2.6 mg/dL (0.6-1.3)
[2016-07-11 09:42] LABS: ANION GAP 15.5 mmol/L (8-16); CARBON DIOXIDE 23.3 mmol/L (21.0-32.0); CREATININE - SERUM 2.6 mg/dL (0.6-1.3); POTASSIUM - SERUM 4.8 mmol/L (3.5-5.1)
[2016-07-11 09:44] LABS: BASOPHILS 0 % (0-2); EOSINOPHILS 0 % (0-7); HEMATOCRIT 31.7 % (42.0-54.0); HEMOGLOBIN 10.7 g/dL (13.5-17.5); IMMATURE GRANULOCYTES 1.1 % (0-5); LYMPHOCYTES 9.4 % (15-50); MCH 32.3 pg (26.0-34.0); MCHC 33.8 g/dL (31.0-37.0); MCV 95.8 fL (80.0-100.0); MONOCYTES 8.5 % (2-11); PLATELET COUNT 84 10x3/uL (130-400); RBC 3.31 10x6/uL (4.20-6.10); RDW 17.2 % (11.5-14.5)
[2016-07-11 10:12] LABS: PLATELET ESTIMATE DECREASED
[2016-07-12] MEDS ORDERED: HYDROCODON-ACE1 EAC7 PO (08:16)
== END 2016-07-12 11:35 | disposition home or self-care (01) | DRG 189 ==
LOC: D.REHAB 15:18
PROVIDERS: ADMIT Emergency Medicine
DX: J96.21 Acute and chronic respiratory failure with hypoxia (principal); D62 Acute posthemorrhagic anemia; I13.0 Hypertensive heart and chronic kidney disease with heart failure and stage 1 through stage 4 chronic kidney disease, or unspecified chronic kidney disease; N18.4 Chronic kidney disease, stage 4 (severe); I50.22 Chronic systolic (congestive) heart failure; N17.9 Acute kidney failure, unspecified; J43.9 Emphysema, unspecified; J84.10 Pulmonary fibrosis, unspecified; R73.9 Hyperglycemia, unspecified; I35.0 Nonrheumatic aortic (valve) stenosis; D69.6 Thrombocytopenia, unspecified; R53.83 Other fatigue; R53.81 Other malaise; E78.5 Hyperlipidemia, unspecified; N40.0 Benign prostatic hyperplasia without lower urinary tract symptoms; Z86.73 Personal history of transient ischemic attack (TIA), and cerebral infarction without residual deficits

== ENCOUNTER → 2016-09-21 08:35 | Outpatient (CLI) | payer MEDICARE ==
[2016-07-06 13:49] VITALS: BMI 23.5
[2016-09-21 09:48] LABS: ALBUMIN 3.1 g/dL (3.4-5.0); BILIRUBIN - DIRECT 0.08 mg/dL (0.00-0.30); BILIRUBIN - INDIRECT 0.22 mg/dL (0.00-1.00); BILIRUBIN - TOTAL 0.3 mg/dL (0.2-1.3); PROTEIN - SERUM 6.6 g/dL (6.4-8.2)
== END | disposition home or self-care (01) ==
LOC: D.RT 08:35
PROVIDERS: Internal Medicine Pulmonary Disease
DX: J44.9 Chronic obstructive pulmonary disease, unspecified (principal); J84.10 Pulmonary fibrosis, unspecified

== ENCOUNTER → 2016-10-24 12:35 | Outpatient (CLI) | payer MEDICARE ==
[2016-07-06 13:49] VITALS: BMI 23.5
== END | disposition home or self-care (01) ==
LOC: D.US 12:35
DX: I65.23 Occlusion and stenosis of bilateral carotid arteries (principal)

== ENCOUNTER 2017-01-29 14:19 | Inpatient (IN) | payer MEDICARE ==
[~2017-01-29] VITALS: Ht 180.3 cm; Wt 68.9 kg
[2017-01-29 14:49] LABS: BASOPHILS 1.6 % (0-2); EOSINOPHILS 7.9 % (0-7); HEMATOCRIT 29.4 % (42.0-54.0); HEMOGLOBIN 9.9 g/dL (13.5-17.5); IMMATURE GRANULOCYTES 0.4 % (0-5); LYMPHOCYTES 24.2 % (15-50); MCH 32.7 pg (26.0-34.0); MCHC 33.7 g/dL (31.0-37.0); MEAN PLATELET VOLUME 10.7 fL (7.4-10.4); MONOCYTES 7.5 % (2-11); NEUTROPHILS 58.4 % (40-80); PLATELET COUNT 72 10x3/uL (130-400); RBC 3.03 10x6/uL (4.20-6.10); RDW 16.3 % (11.5-14.5); WBC 6.8 10x3/uL (4.8-10.8)
--- NOTE | 2017-01-29 15:24 | NUR ---
RECIEVED FROM DRS OFFICE . ALERT AND ORIENTED.DENIES ANY NEEDS. NO C/O PAIN.V/S STABLE.
[2017-01-29 15:29] LABS: ALBUMIN 2.8 g/dL (3.4-5.0); ANION GAP 18.1 mmol/L (8-16); BILIRUBIN - DIRECT 0.08 mg/dL (0.00-0.30); BILIRUBIN - INDIRECT 0.22 mg/dL (0.00-1.00); BILIRUBIN - TOTAL 0.3 mg/dL (0.2-1.3); CALCIUM 7.7 mg/dL (8.5-10.1); CARBON DIOXIDE 17.8 mmol/L (21.0-32.0); CREATININE - SERUM 4.7 mg/dL (0.6-1.3); MAGNESIUM - SERUM 1.9 mg/dL (1.8-2.4); PHOSPHOROUS 6.2 mg/dL (2.5-4.9); POTASSIUM - SERUM 5.9 mmol/L (3.5-5.1); PROTEIN - SERUM 6.3 g/dL (6.4-8.2)
[2017-01-29 15:41] LABS: PLATELET ESTIMATE DECREASED
--- NOTE | 2017-01-29 16:30 | NUR ---
IV SITED 20 G LEFT FORARM X 1 ATTEMPT
[2017-01-29 16:52] VITALS: BP 144/84
[2017-01-29 17:27] VITALS: BMI 21.2
--- NOTE | 2017-01-29 17:36 | NUR ---
ASSESSMENT COMPLETE VSS AAOX4 RESP SL SOB PT DENIES ANY NEEDS OR DISCOMFORT
--- NOTE | 2017-01-29 18:24 | NUR ---
MEDS NOT AVAILABLE FROM PHARMACY. RUMA LOPEZ WELL LISA. TELEMERTY SHOWS SR. DENIES ANY NEEDS. SR UP WITH CALL LIGHT IN REACH
[2017-01-29 20:33] VITALS: BP 146/84
--- NOTE | 2017-01-29 23:03 | NUR ---
PATIENT IS RESTING COMFORTABLY. UP WITH ONE PERSON ASSIST TO BATHROOM. HAS REMOVED HIS DENTURES AND IS READY FOR BED. CALL LIGHT IN REACH BED IN LOW POSITION.
--- NOTE | 2017-01-30 00:01 | NUR ---
MANUFACTURING SUPERVISOR 2ND SHIFT AT BED SIDE TO OBTAIN VITALS, WILL CONT TO MONITOR.
--- NOTE | 2017-01-30 01:36 | NUR ---
SLEEPING COMFORTABLY. ROOM DARK, DOOR OPEN. CALL LIGHT IN REACH, BED IN LOW POSITION.
--- NOTE | 2017-01-30 03:30 | NUR ---
PATIENT SLEEPING. LABS DRAWN . DENIES ANY NEEDS AT THIS TIME. CALL LIGHT IN REACH, BED IN LOW POSITION.
[2017-01-30 03:36] LABS: BASOPHILS 0.6 % (0-2); EOSINOPHILS 8.3 % (0-7); HEMATOCRIT 29.6 % (42.0-54.0); HEMOGLOBIN 9.8 g/dL (13.5-17.5); IMMATURE GRANULOCYTES 0.6 % (0-5); LYMPHOCYTES 36.3 % (15-50); MCH 31.7 pg (26.0-34.0); MCHC 33.1 g/dL (31.0-37.0); MCV 95.8 fL (80.0-100.0); MEAN PLATELET VOLUME 11.6 fL (7.4-10.4); MONOCYTES 9.1 % (2-11); NEUTROPHILS 45.1 % (40-80); PLATELET COUNT 81 10x3/uL (130-400); RBC 3.09 10x6/uL (4.20-6.10); WBC 6.8 10x3/uL (4.8-10.8)
[2017-01-30 03:49] LABS: ALBUMIN 2.8 g/dL (3.4-5.0); BILIRUBIN - TOTAL 0.35 mg/dL (0.2-1.3); CALCIUM 7.3 mg/dL (8.5-10.1); CREATININE - SERUM 4.5 mg/dL (0.6-1.3); MAGNESIUM - SERUM 1.9 mg/dL (1.8-2.4); PHOSPHOROUS 5.4 mg/dL (2.5-4.9); PROTEIN - SERUM 6.1 g/dL (6.4-8.2)
[2017-01-30 04:39] VITALS: BP 142/79
[2017-01-30 04:47] LABS: ERYTHROCYTE SEDIMENTATION RATE 5 mm/hr (0-20)
--- NOTE | 2017-01-30 06:14 | NUR ---
PT IN BED RESTING QUIETLY. BREATHING EVEN AND UNLABORED. BED RAILS UP X2. DENIES ANY PAIN OR NEEDS AT THIS TIME. BED LOW, CALL LIGHT WITHIN REACH.
--- NOTE | 2017-01-30 07:50 | NUR ---
DR. CROWELL ASKING WHY IV FLUIDS HAVE NOT BEEN STARTED, THAT HE ORDERED THEM YESTERDAY. INFOMRED DR. CROWELL THAT DAY SHIFT NURSE FROM YESTERDAY WANTED THE FLUID ORDERES TO BE DOUBLE CHECKED BY RENAL, BECAUSE ORDER STATED THAT PT WAS ADMITTED FOR HYPERCALCEMIA. DR. CROWELL STATED " PT WAS ADMITTED WITH HYPOCALCEMIA DID ANY BODY CHECK HIS LABS." INFORMED DR. CROWELL THAT FLUIDS WILL BE STARTED UBALDO. ORDERS FAXED TO PHARMACY AT THIS TIME.
[2017-01-30 07:52] VITALS: BP 127/75
--- NOTE | 2017-01-30 07:53 | HP ---
PATIENT: TORO AUGUST MEDICAL RECORD: [id number] ACCOUNT: [id number] LOCATION:[address] : 34 ADMISSION DATE: 01/29/17 HISTORY AND PHYSICAL EXAMINATION HISTORY OF PRESENT ILLNESS: An 81-year-old male who presents to the clinic today, followup significant hypocalcemia, worsening of his tmewc-wq-ystajmj renal disease, fatigue, and worsening anemia. The patient was seen last week. Labs returned today which showed creatinine elevated to 4.15, calcium down to 7.7, hemoglobin is down to 9.3, hematocrit down to 29.4. The patient has gradual worsening fatigue. Denies chest pain. Denies palpitations. PAST MEDICAL HISTORY: Significant for chronic kidney disease, COPD, BPH, history of TIAs, anemia of chronic disease, and hyperlipidemia. CURRENT MEDICATIONS: Listed as Combivent and Symbicort. ALLERGIES: No known drug allergies. The patient has had prior nephrology evaluations, but none in the past several years other than with hospitalizations. REVIEW OF SYSTEMS: GENERAL: Admits gradual weight loss. Denies any significant change in appetite. HEENT: No cephalgia, visual changes, tinnitus, epistaxis, or dysphagia. CARDIOVASCULAR: Denies chest pain. Denies palpitations. PULMONARY: Denies hemoptysis. Denies night sweats. GASTROINTESTINAL: Denies hematemesis, hematochezia, or melena. GENITOURINARY: Denies dysuria. MUSCULOSKELETAL: Generalized weakness. No acute changes. Gradual general decline in activity level. PHYSICAL EXAMINATION: VITAL SIGNS: Height 5 feet 11 inches, weight 150, BMI is 20.9. Blood pressure is 140/76, heart rate 82, O2 sats 98%, temperature 97.8. GENERAL: Alert and oriented, no present distress. HEENT: Head is normocephalic, atraumatic. Eyes: Pupils are equally round and reactive to light and accommodation. Extraocular muscles intact. Conjunctiva was not injected. Ears: Canals patent, TMs are intact. Nose: Nares patent without drainage. Throat: No erythema, no exudates. NECK: Supple. No lymphadenopathy, no JVD. HEART: Regular rate and rhythm. No S3 or S4. No rub. LUNGS: Clear to auscultation bilaterally. Breathing is nonlabored. ABDOMEN: Soft, nontender. Bowel sounds all 4 quadrants. EXTREMITIES: Present times 4, no edema. NEUROLOGIC: Intact. SKIN: Warm, dry. No rash. LABORATORY DATA: Chemistry shows a sodium of 141, potassium 4.99, chloride 113, bicarbonate 21.9, calcium is 7.7, BUN is 46, creatinine 4.15. CBC: White count 5.9, hemoglobin 9.3, hematocrit 29.4, platelets 77. ASSESSMENT AND PLAN: 1. Rdhzj-pv-moscgeu kidney disease. HISTORY AND PHYSICAL [id number] TORO AUGUST 2. Hypocalcemia. 3. Anemia of chronic disease. The patient is admitted. We will start on calcium infusion, consult nephrology. CBC, magnesium, and phosphorous. BMP on admission, EKG on admission, PTH, vitamin D, LFTs on admission, and the IV D5W with calcium gluconate at 0.2 meals per kilogram per hour. Repeat labs in a.m. Renal diet. TRANSINT:[id number] Voice Confirmation ID: [id number] DOCUMENT ID: [id number] FLORECITA CROWELL DO at 0753 CC: [id number] DICTATION DATE: 01/29/17 1633 DRIVER LICENSE TECHNICIAN: 01/29/17 1721 ADM IN [facility] [address] [place] [address]
--- NOTE | 2017-01-30 09:43 | NUR ---
FLUIDS STARTED AT THIS TIME TO INFUSE AT 75CC/HR. PT IN BED, WATCHING TV, DENIES ANY NEEDS AT THIS TIME. CALL LIGHT IN REACH, NAD NOTED, WILL CONTINUE PLAN OF CARE.
[2017-01-30 10:52] LABS: APPEARANCE CLEAR (CLEAR); BACTERIA FEW /hpf (NONE SEEN); BILIRUBIN NEGATIVE (NEGATIVE); COLOR YELLOW (YELLOW); EPITHELIAL CELLS 0-5 /hpf (0-5); GLUCOSE 50 mg/dL (NEGATIVE); KETONE SMALL mg/dL (NEGATIVE); MUCUS <1+ /lpf (NONE SEEN); NITRITE NEGATIVE (NEGATIVE); PROTEIN 3+ mg/dL (NEGATIVE); SPECIFIC GRAVITY 1.015 (1.005-1.020); UROBILINOGEN NORMAL (NORMAL); WHITE CELLS - URINE RARE /hpf (0-5)
--- NOTE | 2017-01-30 11:34 | NUR ---
CALLED PHARMACY AND SPOKE WITH ESTRELLA, INFORMED HIM THAT I NEED CALCITROIL FOR PT.
[2017-01-30 11:59] VITALS: BP 145/78
--- NOTE | 2017-01-30 12:37 | NUR ---
PT IN BED, EATING LUNCH, DENIES ANY NEEDS AT THIS TIME. AT BEDSIDE, NAD NOTED.
[2017-01-30 13:40] VITALS: Ht 180.3 cm; Wt 68.9 kg
[2017-01-30 14:59] VITALS: BP 145/60
[2017-01-30 19:00] VITALS: BP 139/79
[2017-01-30 23:29] VITALS: BP 126/75
--- NOTE | 2017-01-31 00:32 | NUR ---
RESTING WITH EYES CLOSED, RESPERATIONS EVEN, NO S/S DISTRESS NOTED.
[2017-01-31 04:05] VITALS: BP 120/80
--- NOTE | 2017-01-31 05:31 | NUR ---
TRANSMISSION SPECIALIST AT BEDSIDE TO OBTAIN VITALS, WILL CONTINUE WITH PLAN OF CARE. CALL LIGHT IN REACH.
[2017-01-31 05:35] LABS: BASOPHILS 0.6 % (0-2); EOSINOPHILS 8.5 % (0-7); HEMATOCRIT 27.4 % (42.0-54.0); HEMOGLOBIN 9.3 g/dL (13.5-17.5); IMMATURE GRANULOCYTES 0.3 % (0-5); LYMPHOCYTES 28.5 % (15-50); MCH 32.1 pg (26.0-34.0); MCHC 33.9 g/dL (31.0-37.0); MCV 94.5 fL (80.0-100.0); MEAN PLATELET VOLUME 11.7 fL (7.4-10.4); MONOCYTES 9.5 % (2-11); NEUTROPHILS 52.6 % (40-80); PLATELET COUNT 74 10x3/uL (130-400); RDW 15.9 % (11.5-14.5); WBC 6.2 10x3/uL (4.8-10.8)
[2017-01-31 05:55] LABS: ALBUMIN 2.5 g/dL (3.4-5.0); CALCIUM 7.3 mg/dL (8.5-10.1); CARBON DIOXIDE 15.7 mmol/L (21.0-32.0); CREATININE - SERUM 4.3 mg/dL (0.6-1.3); MAGNESIUM - SERUM 1.8 mg/dL (1.8-2.4); POTASSIUM - SERUM 4.7 mmol/L (3.5-5.1)
--- NOTE | 2017-01-31 07:30 | NUR ---
Patient in bed resting at this time. Roused easily. Patient denies any pain or discomfort. No signs or symptoms of distress are noted at this time. Will continue to assess and monitor patient.
[2017-01-31 07:33] VITALS: BP 137/75
--- NOTE | 2017-01-31 10:13 | NUR ---
PT IN BED, DENIES ANY NEEDS AT THIS TIME. SKIN TEAR TO LT ELBOW NOTED, DRESSING IN PLACE. AT BEDSIDE, CALL LIGHT IN REACH, NAD NOTED, WILL CONTINUE PLAN OF CARE.
[2017-01-31 11:37] VITALS: BP 139/64
[2017-01-31 15:34] VITALS: BP 141/83
--- NOTE | 2017-01-31 19:50 | NUR ---
URINE SPECIMEN TAKEN TO LAB.
[2017-01-31 20:00] VITALS: BP 133/85
[2017-01-31 20:10] LABS: CREATININE - URINE 46.5 mg/dL (30-125); PROTEIN - URINE 395.6 mg/dL (0.0-11.9)
--- NOTE | 2017-01-31 21:02 | NUR ---
HS MEDS GIVEN, PT DENIES PAIN OR NEEDS.
--- NOTE | 2017-01-31 23:16 | NUR ---
IN BED RESTING, RESPERATIONS EVEN, BED LOW, CL IN REACH.
[2017-02-01] VITALS: BP 115/72
--- NOTE | 2017-02-01 02:04 | NUR ---
CALL LIGHT IN REACH, WILL CONTINUE WITH PLAN OF CARE. 70 SR WITH PVC ON TELEMETRY
[2017-02-01 04:00] VITALS: BP 123/61
[2017-02-01 06:42] LABS: ALBUMIN 2.4 g/dL (3.4-5.0); ANION GAP 16.2 mmol/L (8-16); BILIRUBIN - TOTAL 0.4 mg/dL (0.2-1.3); CALCIUM 7.2 mg/dL (8.5-10.1); CARBON DIOXIDE 16.2 mmol/L (21.0-32.0); CREATININE - SERUM 4.7 mg/dL (0.6-1.3); MAGNESIUM - SERUM 1.6 mg/dL (1.8-2.4); PHOSPHOROUS 5.9 mg/dL (2.5-4.9); POTASSIUM - SERUM 4.4 mmol/L (3.5-5.1); PROTEIN - SERUM 5.3 g/dL (6.4-8.2)
--- NOTE | 2017-02-01 07:07 | NUR ---
AM ROUNDS- PT IN BED, WITH EYES CLOSED, EASILY AROUSES TO VOICE. RESP EVEN AND UNLABORED. LT FA SL. BED LOW AND WHEELS LOCKED, BEDSIDE RAILS X2, CALL LIGHT IN REACH, PT DENIES ANY NEEDS AT THIS TIME. NAD NOTED, WILL CONTINUE PLAN OF CARE.
--- NOTE | 2017-02-01 07:51 | NUR ---
Nutrition follow-up/consult: Diet: Renal PO intake 75-100% of meals Labs reviewed Wt: 151# - pt is 87% of IBW Will continue to provide food choices with selective menus and honor food preferences within diet restrictions. RDN will order Nepro with meals to increase kcal/protein intake. Following.
[2017-02-01] MEDS ORDERED: SODIUM BICARBO650 MG PO (08:01)
[2017-02-01] MEDS ORDERED: TUMS500 MG PO (08:01)
[2017-02-01] MEDS ORDERED: ROCALTROL0.25 MCG PO (08:02)
--- NOTE | 2017-02-01 08:06 | NUR ---
AM MEDS GIVEN AT THIS TIME. PT UP TO SIDE OF BED, EATING BREAKFAST, DENIES ANY NEEDS AT THIS TIME. CALL LIGHT IN REACH, NAD NOTED.
[2017-02-01 08:21] VITALS: BP 113/64
--- NOTE | 2017-02-01 09:36 | NUR ---
Patient Name: TORO AUGUST Admission Status: Elective Accout number: [id number] Admission Date: 01-29-2017 : 1935 Admission Diagnosis:HYPOCALCEMIA Attending: FLORECITA CROWELL Current LOS: 3 Anticipated DC Date: 02-01-2017 Planned Disposition: Home with Home Health Primary Insurance: [employer] [facility] Discharge Planning Comments: CM MET WITH PATIENT TO DISCUSS DISCHARGE PLAN. PATIENT STATED HE LIVES AT HOME WITH HIS HOLLIE, AND SHE WILL BE HIS TRANSPORT HOME. HE SAID THAT HE HAS OXYGEN HE WEARS NEEDED AT HOME, BUT CANNOT REMEMBER THE NAME OF THE COMPANY THAT SUPPLIES IT. DISCUSSED WITH THE PATIENT THAT DR CROWELL HAS ORDERED HOME HEALTH. REVIEWED THE CHOICES AND PATIENT CHOICE FORM SIGNED. SPOKE WITH KATHLEEN KEN LEANDER AT HOME. REFERRAL SENT. PATIENT DENIES ANY OTHER NEEDS AT THIS TIME. I HAVE EXPLAINED THAT I AM AVAILABLE UNTIL HE LEAVES IF HE WERE TO THINK OF SOMETHING HE NEEDS. Print Producer: Viviana Hickey Is the patient Alert and Oriented? Yes * How many steps to enter\exit or inside your home? 4, RAILS * PCP DR CROWELL * Pharmacy [facility] [address] * Preadmission Environment Home with Family * ADLs Independent * Equipment Oxygen * List name and contact numbers for known caregivers / representatives who currently or will assist patient after discharge: HOLLIE AUGUST, , * Community resources currently utilized None * Please name any agencies selected above. PT IS UNSURE OF WHO HIS OXYGEN PROVIDER IS * Additional services required to return to the preadmission environment? Yes * Can the patient safely return to the preadmission environment? Yes * Has this patient been hospitalized within the prior 30 days at any hospital? No
--- NOTE | 2017-02-01 10:30 | NUR ---
PROVIDED VERBAL AND WRITTEN DISCHARGE TEACHING TO PT AND AT BEDSIDE. BOTH VERBALIZED UNDERSTANDING REGARDING TEACHING. D/C LT FA IV TIP INTACT, APPLIED 2X2 GAUZE AND TAPE. ALSO PROVIDED PT WITH RENAL DIET INFORMATION. 1119- PT LEFT UNIT VIA WHEELCHAIR, ACCOMPANIED BY , NAD NOTED.
--- NOTE | 2017-02-12 07:59 | DS ---
PATIENT:TORO AUGUST :33 MEDICAL RECORD: [id number] DISCHARGE SUMMARY ADMISSION DATE: 01/29/17 DISCHARGE DATE: 02/01/17 DATE OF ADMISSION: 01/29/2017 DATE OF DISCHARGE: 02/01/2017 ADMISSION DIAGNOSES: Okvzp-qz-xwkslwh kidney disease, hypocalcemia, anemia of chronic disease. DISCHARGE DIAGNOSES: Stage IV chronic kidney disease, secondary hyperparathyroidism of renal origin, anemia of chronic disease, hypocalcemia, vitamin D deficiency. CONSULTS: Dr. Moore, nephrology. IMAGING: Renal ultrasound: No significant abnormalities. No hydronephrosis. Chest x-ray: Chronic emphysematous changes. No acute disease consistent with history of pulmonary fibrosis. HOSPITAL COURSE: The patient was admitted from the clinic, significant change in renal function, hypocalcemia. Parathyroid found to be significantly elevated. Significant vitamin D deficiency. Nephrology consulted. Medications adjusted. Concern with the patient's worsening confusion. This has resolved with changes in medications. The patient is anxious to go home. Discharged home in stable condition. PHYSICAL EXAMINATION: VITAL SIGNS ON DISCHARGE: Temperature 99, blood pressure is 123/61, heart rate 74, respirations 18, O2 sats 95% on room air. DISCHARGE MEDICATIONS: Per med rec. DISCHARGE INSTRUCTIONS: The patient will follow up in the clinic in 10 days, will follow up with nephrology in 2 weeks. We will ask home health to see the patient to verify compliance with medications and supportive care. Agree with assessment by nephrology. TRANSINT:[id number] Voice Confirmation ID: [id number] DOCUMENT ID: [id number] FLORECITA CROWELL DO at 0759 CC: [id number] DICTATION DATE: 02/01/17 0800 ANTHROPOMETRIST: 02/01/17 1435 DIS IN 02/01/17 [place] [id number]
[2017-04-02] MEDS ORDERED: FLUTICASONE PRO16 GM NASAL (10:02)
[2017-04-02] MEDS ORDERED: AFRIN15 ML NASAL (10:02)
== END 2017-02-01 11:26 | disposition home health service (06) | DRG 683 ==
LOC: D.M2 14:19 → D.SDCHOLD 14:19 → D.M2 14:28
PROVIDERS: Internal Medicine; ADMIT Family Medicine
DX: N17.9 Acute kidney failure, unspecified (principal); E46 Unspecified protein-calorie malnutrition; E83.51 Hypocalcemia; N18.4 Chronic kidney disease, stage 4 (severe); N25.81 Secondary hyperparathyroidism of renal origin; I25.10 Atherosclerotic heart disease of native coronary artery without angina pectoris; I12.9 Hypertensive chronic kidney disease with stage 1 through stage 4 chronic kidney disease, or unspecified chronic kidney disease; J44.9 Chronic obstructive pulmonary disease, unspecified; N40.0 Benign prostatic hyperplasia without lower urinary tract symptoms; D63.1 Anemia in chronic kidney disease; J84.10 Pulmonary fibrosis, unspecified; Z68.21 Body mass index [BMI] 21.0-21.9, adult; Z95.1 Presence of aortocoronary bypass graft; Z95.2 Presence of prosthetic heart valve; Z86.73 Personal history of transient ischemic attack (TIA), and cerebral infarction without residual deficits; Z87.891 Personal history of nicotine dependence

== ENCOUNTER 2017-03-10 14:44 | Inpatient (IN) | payer MEDICARE ==
[~2017-03-10] VITALS: Ht 180.3 cm; Wt 68.0 kg
--- NOTE | ~2017-03-10 | EC ---
PATIENT:TORO AUGUST DATE OF SERVICE: 03/10/17 SEX: M MEDICAL RECORD: [id number] DATE OF : 33 LOCATION:[facility] AGE OF PATIENT: 81 ADMISSION DATE: 03/10/17 REFERRING PHYSICIAN: INTERPRETING PHYSICIAN: MARCIN MELENDEZ MD ECHOCARDIOGRAM REPORT ECHO CHARGES 4 ECHO COMPLETE CLINICAL DIAGNOSIS: CHEST PAIN HX OF AVR/CABG ECHOCARDIOGRAPHIC MEASUREMENTS (adult normal given) AC root (d.<3.7cm) 4.3 cm LV Septum d (<1.2 cm> 1.5 cm Valve Excursion 1.7 cm LV Septum (systole) 1.8 cm Left Atria (s.<4.0cm> 3.9 cm LVPW d(<1.2cm) 1.4 cm RV (d.<2.3cm) 4.5 cm LVPW (sytole) 1.7 cm LV diastole(<5.6CM) 5.4 cm MV E-F(>70mm/sec) cm LV systole 3.9 cm LVOT Diameter 1.4 cm MV exc.(>10mm) 1.8 cm Est.ejection fraction (50-75%) % Pericardial Effusion N DOPPLER: LVIT cm/sec A 134 cm/sec E 107 cm/sec LA cm/sec RVSP 64 mmHg LVOT 130 cm/sec AOP1/2T m/s Asc. Ao 253 cm/sec RVOT 1025 cm/sec RA cm/sec PA 214 cm/sec AV Gradient Peak 25.70mmHg AV Mean 13.42mmHg AV Area 2.6 cm MV Gradient Peak 10.10mmHg MV Mean 4.63 mmHg MV Area cm COMMENTS: KRISTYN IS TRACED [employer] Field Agent: Rashaad LOPEZ Sand Miller: Alejandra Melendez TAPE# PACS DATE OF SERVICE: 03/11/2017 PROCEDURE: Transthoracic echocardiogram. FINDINGS: 1. The left ventricle has moderate concentric left ventricular hypertrophy with preserved hyperdynamic LV systolic function. Ejection fraction 60% to 65%. There is no obvious regional wall motion abnormalities. 2. Left atrium is normal size and normal function. 3. The aortic valve has a bovine aortic valve. The peak pressure is 25 and ECHOCARDIOGRAM REPORT [id number] TORO AUGUST otherwise has normal function. Aortic valve area is still 2.6 cm-squared. 4. The mitral valve has mild mitral regurgitation. 5. Tricuspid valve has moderate tricuspid regurgitation with an RVSP of 60 to 65 mmHg. 6. The pulmonic valve has mild pulmonic insufficiency. 7. The right atrium is mildly dilated. 8. The right ventricle is moderately to severely dilated. CONCLUSIONS: The patient has evidence of LVH, has proper function of a bovine aortic valve. There are no regional wall motion abnormalities and in fact hyperdynamic. He does have dilatation of the right-sided structures associated with moderate pulmonary hypertension and the inflow characteristics are consistent with diastolic dysfunction with possible mild elevations in left ventricular end-diastolic pressures. TRANSINT:[id number] Voice Confirmation ID: [id number] DOCUMENT ID: [id number] 03/19/2017 Edited to correct date of service, dm. MARCIN MELENDEZ MD at 1353 CC: [id number] DICTATION DATE: 03/12/17 1124 EVENT ATTENDANT: 03/12/17 1228 DIS IN 03/19/17 [place] [id number] [place] [address]
--- NOTE | ~2017-03-10 | DS ---
PATIENT:TORO AUGUST :33 MEDICAL RECORD: [id number] DISCHARGE SUMMARY ADMISSION DATE: 03/10/17 DISCHARGE DATE: 03/19/17 DATE OF ADMISSION: 03/11/2017. DATE OF DISCHARGE: 03/19/2017. ADMISSION DIAGNOSES: Exacerbation of chronic kidney disease, coronary artery disease, anemia, chronic obstructive pulmonary disease, shortness of breath, chest pain, chronic obstructive pulmonary disease exacerbation, elevated troponin. DISCHARGE DIAGNOSES: Ariov-yb-jepojod kidney disease, anemia of chronic kidney disease, coronary artery disease, exacerbation of chronic obstructive pulmonary disease, elevated troponin. CONSULTS: Nephrology, oncology, pulmonology, and cardiology. HOSPITAL COURSE: The patient was admitted to the Emergency Room with shortness of breath, had a bump in his troponin, thought to be multifactorial, cleared by cardiology, no significant changes on echo, creatinine had bumped to 5.3, hemoglobin is at 9 and over the course of his hospitalization dropped, he received a total of 4 units of packed red blood cells, significant improvement in his symptoms. No significant change in renal function. Nephrology discussed dialysis with the patient. He has been stable with no urinary symptoms at this time, does not want to do dialysis at this time, but is open if symptoms change. Nephrology agreed, will follow up with nephrology in 2 weeks for reevaluation. We will continue Procrit to maintain hemoglobin and hematocrit levels. Continue home O2. The patient declines rehabilitation, wants to go home, does agree to home health, discharged to home in improved condition. PHYSICAL EXAMINATION: VITAL SIGNS ON DISCHARGE: Temperature 98.4, blood pressure 146/54, heart rate 80, respirations 18, O2 sat is 98%. GENERAL: Alert, oriented, no apparent distress. HEART: Regular rate and rhythm. LUNGS: Clear. ABDOMEN: Soft, nontender. EXTREMITIES: Present times 4, no edema. NEUROLOGIC: Intact. Please see chart for further details. H&H on discharge is 12.1 and 35.3. No changes on chest x-rays, chronic emphysema/pulmonary fibrosis. Agree with input from consultants. We will see the patient in 7-10 days. We will follow up with nephrology in 1-2 weeks. TRANSINT:[id number] Voice Confirmation ID: [id number] DOCUMENT ID: [id number] DISCHARGE SUMMARY REPORT [id number] KUKUK,TORO J FLORECITA CROWELL DO at 0730 CC: [id number] DICTATION DATE: 03/19/1728 ASSOCIATE JUSTICE: 03/19/17 0932 DIS IN 03/19/17 [facility] [address] [place] [address]
--- NOTE | ~2017-03-10 | CN ---
PATIENT NAME:TORO AUGUST MEDICAL RECORD: [id number] : 33 LOCATION:[id number] ADMIT DATE: 03/10/17 ACCOUNT: [id number] CONSULTING PHYSICIAN: ARLETH HULL MD REFERRING PHYSICIAN: FLORECITA CROWELL DO DATE OF CONSULTATION: 03/11/2017 CONSULT REQUESTING PHYSICIAN: Luma Pretty DO REASON FOR CONSULTATION: Acute exacerbation of chronic obstructive pulmonary disease, pulmonary fibrosis, iywxp-zn-jslktyv hypoxic respiratory failure. HISTORY OF PRESENT ILLNESS: Mr. August is an 81-year-old gentleman who was admitted with history of pulmonary fibrosis, chronic obstructive pulmonary disease, and chronic hypoxic respiratory failure. The patient noted that he has worsening shortness of breath for the last few days. The patient was brought into the ER. He denies any fever and chill. There are no night sweats. He hardly walks a few steps without resting. There is no fever or chills, no night sweats. REVIEW OF SYSTEMS: As in history of present illness. PAST MEDICAL HISTORY: 1. Pulmonary fibrosis consistent with IPF. 2. Chronic obstructive pulmonary disease. 3. Chronic hypoxic respiratory failure. 4. Coronary artery disease. PAST SURGICAL HISTORY: 1. He has a history of coronary artery bypass graft. 2. He has AAA repair. 3. He has back surgery. 4. He has cardiac catheterization and stent placement. ALLERGIES: No known drug allergies. PRESENT MEDICATIONS: He is on Ofev 150 mg b.i.d., albuterol/ipratropium nebulizer, Brovana, Symbicort inhaler. PERSONAL AND SOCIAL HISTORY: The patient is an ex-smoker. He is a nondrinker. FAMILY HISTORY: Significant for cardiovascular diseases. PHYSICAL EXAMINATION: GENERAL: Now, the patient is lying comfortably. He is not in acute distress. VITAL SIGNS: The blood pressure is 103/57, pulse is 82, respirations 18, temperature 97.9, SPO2 is 92% on 2 liter nasal cannula. HEENT: Conjunctivae pink. Sclerae not icteric. NECK: Neck is supple. No JVD. CHEST: There are bilateral crackles. Wheeze on forceful expiration. HEART: Rhythm regular. Normal sound. No murmur. ABDOMEN: Abdomen is soft. Bowel sounds present. No hepatosplenomegaly. RECTAL: Deferred. EXTREMITIES: No cyanosis, no clubbing, no pedal edema. SKIN: The skin is warm. Normal turgor. CONSULT REPORT [id number] TORO AUGUST CENTRAL NERVOUS SYSTEM: The patient is awake and alert. There is no obvious cranial nerve abnormality. The gait was not tested. IMAGING: Chest radiograph, there are bilateral pulmonary fibrosis. The chest radiograph is getting worse. OTHER LABORATORY DATA: CBC: The WBC is 9.9, hemoglobin 9, hematocrit 27.1 and the platelet count 76. Chemistry: Sodium is 141, potassium is 5.2, bicarb 16, BUN is 66, and creatinine is 5.3. IMPRESSION: 1. Cednc-fs-bepiear hypoxic respiratory failure, acute exacerbation of chronic obstructive pulmonary disease. 2. Pulmonary fibrosis, which is getting worse on the chest radiograph. 3. Taqno-ke-eaxevjd kidney disease. 4. Tracheobronchitis, possible pneumonia with underlying pulmonary fibrosis. 5. Metabolic acidosis. RECOMMENDATIONS: 1. Continue Levaquin. I will add cefepime. Start methylprednisolone IV. Start Brovana and budesonide nebulizer. 2. Albuterol/ipratropium nebulizer. 3. Supplemental oxygen. 4. Bicarbonate tablet per Dr. Bauer. Dr. Pretty, thank you for involving me in the care of Mr. August. TRANSINT:[id number] Voice Confirmation ID: [id number] DOCUMENT ID: [id number] ARLETH HULL MD at 1406 CC: LUMA PRETTY DO [id number] DICTATION DATE: 03/11/17 1408 [place] ADMINISTRATOR: 03/11/172010 ADM IN [place] [id number] [place] [id number]
[~2017-03-10 14:44] MED LIST changes: +ROCALTROL0.25 MCG PO; +SODIUM BICARBO650 MG PO; +TUMS500 MG PO
[2017-03-10 15:49] LABS: BASOPHILS 0.3 % (0-2); EOSINOPHILS 0.8 % (0-7); HEMATOCRIT 27.1 % (42.0-54.0); IMMATURE GRANULOCYTES 0.3 % (0-5); LYMPHOCYTES 4.9 % (15-50); MCH 32.6 pg (26.0-34.0); MCHC 33.2 g/dL (31.0-37.0); MCV 98.2 fL (80.0-100.0); MEAN PLATELET VOLUME 10.3 fL (7.4-10.4); MONOCYTES 6.2 % (2-11); NEUTROPHILS 87.5 % (40-80); PLATELET COUNT 76 10x3/uL (130-400); RBC 2.76 10x6/uL (4.20-6.10); RDW 15.9 % (11.5-14.5); WBC 9.9 10x3/uL (4.8-10.8)
[2017-03-10 16:09] LABS: ALBUMIN 2.7 g/dL (3.4-5.0); ALKALINE PHOSPHATASE 76 U/L (46-116); ALT (SGPT) 16 U/L (10-68); BILIRUBIN - TOTAL 0.41 mg/dL (0.2-1.3); CALC OSMOLALITY 301 mosm/kg (275-300); CALCIUM 7.6 mg/dL (8.5-10.1); CARBON DIOXIDE 18.4 mmol/L (21.0-32.0); CHLORIDE - SERUM 108 mmol/L (98-107); CREATININE - SERUM 5.3 mg/dL (0.6-1.3); POTASSIUM - SERUM 5.2 mmol/L (3.5-5.1); PROTEIN - SERUM 6.2 g/dL (6.4-8.2); SODIUM 141 mmol/L (136-145); UREA NITROGEN 66 mg/dL (7-18); eGFR NON AFRICAN AMERICAN 11 mL/min (90-120)
[2017-03-10 16:10] LABS: GLUCOSE 142 mg/dL (74-106)
[2017-03-10 16:26] LABS: CKMB 2.5 U/L (0.0-3.6); CREATINE KINASE 114 UL (21-232); PRO BNP 10146 pg/mL (0-450)
[2017-03-10 16:51] LABS: TROPONIN-I 0.062 ng/mL (0.000-0.060)
[2017-03-10 17:32] LABS: MAGNESIUM - SERUM 1.8 mg/dL (1.8-2.4)
[2017-03-10 20:00] VITALS: BP 116/60
[2017-03-10 20:02] VITALS: BP 116/60; BMI 20.9
[2017-03-11] VITALS: BP 109/63
[2017-03-11 04:00] VITALS: BP 105/52
[2017-03-11 08:11] LABS: CKMB 3.7 U/L (0.0-3.6); CREATINE KINASE 129 UL (21-232)
[2017-03-11 08:28] LABS: TROPONIN-I 2.019 ng/mL (0.000-0.060)
[2017-03-11 09:26] VITALS: BP 103/57
[2017-03-11 13:11] VITALS: BP 121/53
[2017-03-11 13:52] LABS: CKMB 4.3 U/L (0.0-3.6); CREATINE KINASE 154 UL (21-232)
[2017-03-11 13:53] LABS: TROPONIN-I 2.074 ng/mL (0.000-0.060)
[2017-03-11 16:54] VITALS: BP 112/54
[2017-03-11 19:30] VITALS: BP 117/60
[2017-03-11 19:44] LABS: CKMB 2.9 U/L (0.0-3.6); CREATINE KINASE 180 UL (21-232)
[2017-03-11 19:46] LABS: TROPONIN-I 2.113 ng/mL (0.000-0.060)
[2017-03-12 03:58] VITALS: BP 124/80
[2017-03-12 04:53] LABS: BASOPHILS 0 % (0-2); EOSINOPHILS 0 % (0-7); HEMATOCRIT 22.4 % (42.0-54.0); HEMOGLOBIN 7.6 g/dL (13.5-17.5); IMMATURE GRANULOCYTES 0.4 % (0-5); LYMPHOCYTES 3.8 % (15-50); MCH 32.5 pg (26.0-34.0); MCHC 33.9 g/dL (31.0-37.0); MCV 95.7 fL (80.0-100.0); MONOCYTES 3.6 % (2-11); NEUTROPHILS 92.2 % (40-80); PLATELET COUNT 72 10x3/uL (130-400); RBC 2.34 10x6/uL (4.20-6.10); RDW 15.8 % (11.5-14.5); WBC 8.5 10x3/uL (4.8-10.8)
[2017-03-12 05:10] LABS: ALBUMIN 2.3 g/dL (3.4-5.0); BILIRUBIN - TOTAL 0.2 mg/dL (0.2-1.3); CALCIUM 7.7 mg/dL (8.5-10.1); CARBON DIOXIDE 17.6 mmol/L (21.0-32.0); CREATININE - SERUM 5.9 mg/dL (0.6-1.3); PHOSPHOROUS 5.9 mg/dL (2.5-4.9); POTASSIUM - SERUM 4.6 mmol/L (3.5-5.1); PROTEIN - SERUM 5.6 g/dL (6.4-8.2)
[2017-03-12 09:32] VITALS: BP 117/64
[2017-03-12 12:34] VITALS: BMI 20.9
[2017-03-12] MEDS ORDERED: RENVELA800 MG PO (12:56)
[2017-03-12 13:27] VITALS: BP 115/61
[2017-03-12 16:31] LABS: APPEARANCE CLEAR (CLEAR); BILIRUBIN NEGATIVE (NEGATIVE); COLOR YELLOW (YELLOW); GLUCOSE 50 mg/dL (NEGATIVE); KETONE NEGATIVE (NEGATIVE); NITRITE NEGATIVE (NEGATIVE); PROTEIN 1+ mg/dL (NEGATIVE); UROBILINOGEN NORMAL (NORMAL)
[2017-03-12 16:32] LABS: RED CELLS - URINE 0-5 /hpf (0-5); WHITE CELLS - URINE OCC /hpf (0-5)
[2017-03-12 16:41] VITALS: BP 114/64
[2017-03-12 17:41] LABS: CREATININE - URINE 63.5 mg/dL (30-125); PRO/CRE RATIO URINE 5.5 mg/g; PROTEIN - URINE 348.9 mg/dL (0.0-11.9)
[2017-03-12 23:00] VITALS: BP 96/48
[2017-03-13] VITALS (12 sets, daily range): BP systolic 111–130; BP diastolic 61–73
[2017-03-13 05:08] LABS: BASOPHILS 0 % (0-2); EOSINOPHILS 0 % (0-7); HEMATOCRIT 21.5 % (42.0-54.0); IMMATURE GRANULOCYTES 0.5 % (0-5); LYMPHOCYTES 4.2 % (15-50); MCH 31.7 pg (26.0-34.0); MCHC 33.5 g/dL (31.0-37.0); MCV 94.7 fL (80.0-100.0); MEAN PLATELET VOLUME 11.6 fL (7.4-10.4); MONOCYTES 4.3 % (2-11); PLATELET COUNT 77 10x3/uL (130-400); RBC 2.27 10x6/uL (4.20-6.10); RDW 15.7 % (11.5-14.5); WBC 7.6 10x3/uL (4.8-10.8)
[2017-03-13 05:10] LABS: HEMOGLOBIN 7.5 g/dL (13.5-17.5)
[2017-03-13 05:23] LABS: ANION GAP 20.1 mmol/L (8-16); CALCIUM 8.1 mg/dL (8.5-10.1); CARBON DIOXIDE 18.6 mmol/L (21.0-32.0); CREATININE - SERUM 5.9 mg/dL (0.6-1.3); PHOSPHOROUS 6.4 mg/dL (2.5-4.9); POTASSIUM - SERUM 4.7 mmol/L (3.5-5.1)
[2017-03-14 02:00] VITALS: BP 109/76
[2017-03-14 06:10] LABS: BASOPHILS 0 % (0-2); EOSINOPHILS 0 % (0-7); IMMATURE GRANULOCYTES 1.2 % (0-5); LYMPHOCYTES 5.2 % (15-50); MCH 30.7 pg (26.0-34.0); MONOCYTES 5.3 % (2-11); NEUTROPHILS 88.3 % (40-80); PLATELET COUNT 67 10x3/uL (130-400); RDW 19.3 % (11.5-14.5); WBC 6.6 10x3/uL (4.8-10.8)
[2017-03-14 06:18] LABS: HEMATOCRIT 26.8 % (42.0-54.0); HEMOGLOBIN 9.1 g/dL (13.5-17.5); MCV 90.5 fL (80.0-100.0); RBC 2.96 10x6/uL (4.20-6.10)
[2017-03-14 06:32] LABS: ANION GAP 20.6 mmol/L (8-16); CARBON DIOXIDE 18.1 mmol/L (21.0-32.0); CREATININE - SERUM 5.8 mg/dL (0.6-1.3); MAGNESIUM - SERUM 1.9 mg/dL (1.8-2.4); PHOSPHOROUS 6.8 mg/dL (2.5-4.9); POTASSIUM - SERUM 4.7 mmol/L (3.5-5.1)
[2017-03-14 08:20] VITALS: BP 109/58
[2017-03-14 12:26] VITALS: BP 117/61
[2017-03-14 16:14] VITALS: BP 149/78
[2017-03-14 20:00] VITALS: BP 135/75
[2017-03-15] VITALS: BP 127/65
[2017-03-15 04:00] VITALS: BP 164/105
[2017-03-15 04:48] LABS: BASOPHILS 0 % (0-2); EOSINOPHILS 0 % (0-7); HEMATOCRIT 27.2 % (42.0-54.0); HEMOGLOBIN 9.3 g/dL (13.5-17.5); IMMATURE GRANULOCYTES 1.5 % (0-5); LYMPHOCYTES 6.6 % (15-50); MCH 30.7 pg (26.0-34.0); MCHC 34.2 g/dL (31.0-37.0); MCV 89.8 fL (80.0-100.0); MONOCYTES 4.8 % (2-11); NEUTROPHILS 87.1 % (40-80); PLATELET COUNT 64 10x3/uL (130-400); RBC 3.03 10x6/uL (4.20-6.10); RDW 18.6 % (11.5-14.5); WBC 5.5 10x3/uL (4.8-10.8)
[2017-03-15 06:10] LABS: ANION GAP 20.8 mmol/L (8-16); CARBON DIOXIDE 18.9 mmol/L (21.0-32.0); CREATININE - SERUM 5.9 mg/dL (0.6-1.3); PHOSPHOROUS 6.9 mg/dL (2.5-4.9); POTASSIUM - SERUM 4.7 mmol/L (3.5-5.1)
[2017-03-15 06:58] LABS: ALBUMIN 2.5 g/dL (3.4-5.0)
[2017-03-15 08:36] VITALS: BP 113/35
[2017-03-15 08:51] LABS: CKMB 4.5 U/L (0.0-3.6)
[2017-03-15 08:59] LABS: TROPONIN-I 0.919 ng/mL (0.000-0.060)
[2017-03-15 20:00] VITALS: BP 118/82
[2017-03-16] VITALS: BP 120/80
[2017-03-16 06:35] LABS: BASOPHILS 0.1 % (0-2); EOSINOPHILS 0.8 % (0-7); HEMATOCRIT 32.5 % (42.0-54.0); IMMATURE GRANULOCYTES 2.2 % (0-5); LYMPHOCYTES 18.6 % (15-50); MCH 30.4 pg (26.0-34.0); MCHC 34.5 g/dL (31.0-37.0); MCV 88.1 fL (80.0-100.0); MONOCYTES 9.2 % (2-11); NEUTROPHILS 69.1 % (40-80); PLATELET COUNT 64 10x3/uL (130-400); RDW 18.9 % (11.5-14.5)
[2017-03-16 06:39] LABS: HEMOGLOBIN 11.2 g/dL (13.5-17.5); RBC 3.69 10x6/uL (4.20-6.10); WBC 7.6 10x3/uL (4.8-10.8)
[2017-03-16 06:59] LABS: ANION GAP 19.8 mmol/L (8-16); CALCIUM 7.7 mg/dL (8.5-10.1); CARBON DIOXIDE 19.5 mmol/L (21.0-32.0); CREATININE - SERUM 5.5 mg/dL (0.6-1.3); MAGNESIUM - SERUM 1.9 mg/dL (1.8-2.4); POTASSIUM - SERUM 4.3 mmol/L (3.5-5.1)
[2017-03-16 07:14] VITALS: BP 138/78
[2017-03-16 11:07] VITALS: BP 140/75
[2017-03-16 15:14] VITALS: BP 131/96
[2017-03-17] VITALS: BP 122/78
[2017-03-17 05:00] VITALS: BP 149/82
[2017-03-17 05:09] LABS: BASOPHILS 0.1 % (0-2); EOSINOPHILS 0 % (0-7); HEMATOCRIT 35.2 % (42.0-54.0); IMMATURE GRANULOCYTES 4.7 % (0-5); LYMPHOCYTES 6.5 % (15-50); MCH 30.2 pg (26.0-34.0); MCHC 34.1 g/dL (31.0-37.0); MCV 88.7 fL (80.0-100.0); MONOCYTES 4.2 % (2-11); NEUTROPHILS 84.5 % (40-80); PLATELET COUNT 67 10x3/uL (130-400); RBC 3.97 10x6/uL (4.20-6.10); RDW 18.3 % (11.5-14.5)
[2017-03-17 05:26] LABS: ANION GAP 18.7 mmol/L (8-16); CALCIUM 7.4 mg/dL (8.5-10.1); CARBON DIOXIDE 21.2 mmol/L (21.0-32.0); CREATININE - SERUM 5.5 mg/dL (0.6-1.3); POTASSIUM - SERUM 4.9 mmol/L (3.5-5.1)
[2017-03-17 07:28] VITALS: BP 130/76
[2017-03-17 11:04] VITALS: BP 167/79
[2017-03-17 15:34] VITALS: Ht 180.3 cm; Wt 68.0 kg
[2017-03-17 20:00] VITALS: BP 161/89
[2017-03-18 04:00] VITALS: BP 155/80
[2017-03-18 04:23] LABS: BASOPHILS 0 % (0-2); EOSINOPHILS 0.2 % (0-7); HEMATOCRIT 34.8 % (42.0-54.0); HEMOGLOBIN 11.9 g/dL (13.5-17.5); IMMATURE GRANULOCYTES 4.3 % (0-5); LYMPHOCYTES 5.5 % (15-50); MCH 30.4 pg (26.0-34.0); MCHC 34.2 g/dL (31.0-37.0); MCV 88.8 fL (80.0-100.0); MONOCYTES 4.4 % (2-11); NEUTROPHILS 85.6 % (40-80); PLATELET COUNT 65 10x3/uL (130-400); RBC 3.92 10x6/uL (4.20-6.10); WBC 6.5 10x3/uL (4.8-10.8)
[2017-03-18 05:01] LABS: ALBUMIN 2.5 g/dL (3.4-5.0); ANION GAP 17.2 mmol/L (8-16); BILIRUBIN - TOTAL 0.74 mg/dL (0.2-1.3); CALCIUM 7.5 mg/dL (8.5-10.1); CARBON DIOXIDE 22.5 mmol/L (21.0-32.0); CREATININE - SERUM 5.5 mg/dL (0.6-1.3); POTASSIUM - SERUM 4.7 mmol/L (3.5-5.1); PROTEIN - SERUM 5.4 g/dL (6.4-8.2)
[2017-03-18 08:51] VITALS: BP 143/82
[2017-03-18 12:20] VITALS: BP 157/75
[2017-03-18 16:03] VITALS: BP 146/72
[2017-03-18 20:00] VITALS: BP 143/87
[2017-03-19 04:00] VITALS: BP 146/54
[2017-03-19 06:03] LABS: BASOPHILS 0.1 % (0-2); EOSINOPHILS 1.8 % (0-7); HEMATOCRIT 35.3 % (42.0-54.0); HEMOGLOBIN 12.1 g/dL (13.5-17.5); IMMATURE GRANULOCYTES 2.7 % (0-5); LYMPHOCYTES 16.4 % (15-50); MCH 30.6 pg (26.0-34.0); MCHC 34.3 g/dL (31.0-37.0); MCV 89.4 fL (80.0-100.0); MONOCYTES 7.3 % (2-11); NEUTROPHILS 71.7 % (40-80); PLATELET COUNT 69 10x3/uL (130-400); RBC 3.95 10x6/uL (4.20-6.10)
[2017-03-19 06:20] LABS: WBC 8.5 10x3/uL (4.8-10.8)
[2017-03-19 06:35] LABS: ALBUMIN 2.5 g/dL (3.4-5.0); ANION GAP 17.8 mmol/L (8-16); BILIRUBIN - TOTAL 0.73 mg/dL (0.2-1.3); CALCIUM 7.6 mg/dL (8.5-10.1); CARBON DIOXIDE 24.4 mmol/L (21.0-32.0); CREATININE - SERUM 5.2 mg/dL (0.6-1.3); POTASSIUM - SERUM 4.2 mmol/L (3.5-5.1); PROTEIN - SERUM 5.3 g/dL (6.4-8.2)
[2017-03-19] MEDS ORDERED: VIBRAMYCIN 100100 MG PO (07:13)
[2017-03-19] MEDS ORDERED: PROCRIT/EP10000 UNIT SC (07:16)
[2017-03-19] MEDS ORDERED: FLORAJEN3 CAPS460 MG PO (07:17)
[2017-03-19] MEDS ORDERED: SODIUM BICARBO650 MG PO (07:18)
[2017-03-19] MEDS ORDERED: PREDNISONE20 MG PO (07:20)
[2017-03-19 08:30] VITALS: BP 145/86
[2017-03-20 07:21] LABS: FOLATE (FOLIC ACID) - SERUM 13.9 ng/mL (>3.0)
[2017-03-20 11:15] LABS: ERYTHROPOIETIN 41.6 mIU/mL (2.6-18.5)
[2017-03-20 13:13] LABS: IMMUNOFIXATION Note: (()); IMMUNOGLOBULIN A 271 mg/dL (61-437); IMMUNOGLOBULIN G 692 mg/dL (700-1600); IMMUNOGLOBULIN M 64 mg/dL (15-143); SPE - A/G RATIO 1.5 (0.7-1.7); SPE - ALPHA-1 GLOBULIN 0.2 g/dL (0.0-0.4); SPE - ALPHA-2 GLOBULIN 0.6 g/dL (0.4-1.0); SPE - BETA GLOBULIN 0.6 g/dL (0.7-1.3); SPE - GAMMA GLOBULIN 0.6 g/dL (0.4-1.8); SPE - M-SPIKE Not Observed g/dL (Not Observed)
[2017-04-02] MEDS ORDERED: AFRIN15 ML NASAL (10:02)
[2017-04-02] MEDS ORDERED: FLUTICASONE PRO16 GM NASAL (10:02)
== END 2017-03-19 11:05 | disposition home health service (06) | DRG 189 ==
LOC: D.ER 14:44 → D.MS 17:50
PROVIDERS: Emergency Medicine; Family Medicine; Internal Medicine Hematology & Oncology; Internal Medicine Nephrology
DX: J96.21 Acute and chronic respiratory failure with hypoxia (principal); J44.1 Chronic obstructive pulmonary disease with (acute) exacerbation; N18.4 Chronic kidney disease, stage 4 (severe); N17.9 Acute kidney failure, unspecified; E87.2 Acidosis; N25.81 Secondary hyperparathyroidism of renal origin; J84.112 Idiopathic pulmonary fibrosis; E83.39 Other disorders of phosphorus metabolism; D63.8 Anemia in other chronic diseases classified elsewhere; I25.10 Atherosclerotic heart disease of native coronary artery without angina pectoris; R07.9 Chest pain, unspecified; J45.20 Mild intermittent asthma, uncomplicated; D69.6 Thrombocytopenia, unspecified; Z87.891 Personal history of nicotine dependence; I71.4 Abdominal aortic aneurysm, without rupture; I08.1 Rheumatic disorders of both mitral and tricuspid valves; D63.1 Anemia in chronic kidney disease